=== PATIENT | male | born 1935 | race Caucasian/White ===

== ENCOUNTER 2019-05-04 03:50 | Emergency (ER) | payer MEDICARE ==
[2019-05-04 04:31] LABS: Glucose,Whole Blood 110 mg/dL (75-99)
[2019-05-04 04:37] LABS: Basophils # (A) 0.1 k/uL (0-0.2); Basophils % (A) 2 %; Eosinophils # (A) 0.1 k/uL (0-0.7); Eosinophils % (A) 2 %; HCT 39.7 % (39.0-53.0); HGB 13.3 gm/dL (13.0-17.5); Lymphocytes # (A) 0.4 k/uL (1.0-4.8); Lymphocytes % (A) 6 %; MCHC 33.4 g/dL (31.0-37.0); MCV 86.9 fL (80.0-100.0); Monocytes # (A) 0.8 k/uL (0-1.0); Monocytes % (A) 11 %; Neutrophils # (A) 5.6 k/uL (1.3-7.7); Neutrophils % (A) 78 %; Platelet Count 181 k/uL (150-450); RBC 4.57 m/uL (4.30-5.90); WBC 7.1 k/uL (3.8-10.6)
--- NOTE | 2019-05-04 04:41 | XR ---
EXAMINATION TYPE: XR chest 2V DATE OF EXAM: 05/04/2019 COMPARISON: NONE HISTORY: Altered mental status. Weakness. TECHNIQUE: FINDINGS: There is no heart failure nor confluent pneumonic infiltrate. Costophrenic angles are clear . There is small linear density in the left lung. There are no hilar masses. There are chest leads. T here is no sign of pleural effusion. Bony thorax is intact. IMPRESSION: Mild left side scarring or subsegmental atelectasis. Normal heart.
[2019-05-04 04:43] LABS: ALT 15 U/L (4-49); AST 35 U/L (17-59); African American GFR (CKD) >90 (>60 ml/min/1.73 sqM); Albumin 3.6 g/dL (3.5-5.0); Alkaline Phosphatase 51 U/L (38-126); Anion Gap 7 mmol/L; Blood Urea Nitrogen 22 mg/dL (9-20); Calcium 8.5 mg/dL (8.4-10.2); Carbon Dioxide 24 mmol/L (22-30); Chloride 102 mmol/L (98-107); Glucose 100 mg/dL (74-99); Non-African American GFR(CKD) 83 (>60 ml/min/1.73 sqM); Potassium 4.5 mmol/L (3.5-5.1); Sodium 133 mmol/L (137-145); Total Protein 6.5 g/dL (6.3-8.2)
[2019-05-04 04:50] LABS: Prothrombin Time 10.1 sec (9.0-12.0)
--- NOTE | 2019-05-04 04:50 | CT ---
EXAMINATION TYPE: CT brain wo con DATE OF EXAM: 05/04/2019 COMPARISON: None HISTORY: weakness, ams CT DLP: 1087.4 mGycm Automated exposure control for dose reduction was used. Multiple axial sections were obtained of the brain without contrast. There is diffuse cerebral cortical atrophy. There is no mass effect nor midline shift. There is no si gn of intracranial hemorrhage. The calvarium is intact. There is no evidence of cerebral edema. There is mild mucosal thickening in the ethmoid air cells. IMPRESSION: Cerebral atrophy. No acute intracranial abnormality. Mild ethmoid sinusitis.
[2019-05-04 05:31] VITALS: TEMP 98.4
--- NOTE | 2019-05-04 05:45 | ED ---
General Adult HPI - General Chief complaint: Fall Stated complaint: Weakness Time Seen by Provider: 05/04/19 04:09 Source: patient, family Mode of arrival: EMS - History of Present Illness Initial comments: Mr Fernandez is a pleasantly confused 83-year-old gentleman presents the ER today for evaluation of generalized weakness and a fall. Patient has been undergoing a very thorough evaluation with neurology due to multiple complaints which are likely due to normal pressure hydrocephalus. Patient underwent a lumbar puncture earlier in the week and had improvement in his gait instability and confusion. reports that this evening patient just seemed to be worse, he seemed to have some weakness and trouble walking and attempted to get out of bed and fell. He did not strike his head he did not lose consciousness. reports this is been ongoing problem for a number of months and his neurologist had advised that he needs C neurosurgery to discuss having a shunt placed. Patient reports he is just feeling tired this morning was weak and couldn't get out of bed. He denies any pain or injury. - Related Data Allergies Allergy/AdvReac Type Severity Reaction Status Date / Time No Known Allergies Allergy Verified 05/04/19 03:59 Review of Systems ROS Statement: Those systems with pertinent positive or pertinent negative responses have been documented in the HPI. ROS Other: All systems not noted in ROS Statement are negative. Past Medical History Past Medical History: Memory Impairment, Osteoarthritis (OA) Additional Past Medical History / Comment(s): Dementia, difficulty walking, incontinent, History of Any Multi-Drug Resistant Organisms: None Reported Past Surgical History: Orthopedic Surgery Past Psychological History: Depression Smoking Status: Former smoker Past Alcohol Use History: None Reported Past Drug Use History: None Reported General Exam - General Exam Comments Initial Comments: Physical Exam GENERAL: Patient is well-developed and well-nourished. Patient is nontoxic and well- hydrated and is in no distress. HENT: Normocephalic, Atraumatic. EYES: PERRL, EOMI PULMONARY: Unlabored respirations. No audible rales rhonchi or wheezing was noted. CARDIOVASCULAR: There is a regular rate and rhythm without any murmurs gallops or rubs. ABDOMEN: Soft and nontender with normal bowel sounds. SKIN: Skin is clear with no lesions or rashes and otherwise unremarkable. : Deferred NEUROLOGIC: Patient is alert and oriented x3. Moving all extremities spontaneously MUSCULOSKELETAL: Normal extremities with adequate strength and full range of motion. No lower extremity swelling or edema. No calf tenderness. PSYCHIATRIC: Normal psychiatric evaluation. Course Vital Signs 05/04/19 05/04/19 05/04/19 03:52 04:04 04:08 Temperature 99.2 F 98.8 F Pulse Rate 82 85 Pulse Rate [ General Counsel ] Respiratory 17 19 20 Rate Blood Pressure 164/107 133/88 O2 Sat by Pulse 94 L 97 Oximetry 05/04/19 05/04/19 05/04/19 04:09 05:30 06:00 Temperature 98.4 F Pulse Rate 73 70 Pulse Rate [ 91 General Counsel ] Respiratory 15 18 Rate Blood Pressure 135/85 132/79 O2 Sat by Pulse 94 L 93 L Oximetry 05/04/19 05/04/19 07:00 07:22 Temperature 98.4 F Pulse Rate 66 66 Pulse Rate [ General Counsel ] Respiratory 19 17 Rate Blood Pressure 132/79 132/79 O2 Sat by Pulse 97 97 Oximetry EKG Findings - EKG Comments: EKG Findings:: She was obtained due to complaint of generalized weakness, he was obtained at 354, rate is 81 and rhythm is sinus with bifascicular block, no acute ST elevations or depressions no evidence of acute ischemia or infarction Medical Decision Making - Medical Decision Making The patient was seen and evaluated history was obtained from patient and This is an 83-year-old gentleman with recently diagnosed normal pressure hydrocephalus who is been referred to neurosurgery for shunt placement, patient had a good week after a lumbar puncture earlier in the week but today became weak again with trouble walking and had a fall. He had no injuries. Denied any complaints. Labs and imaging obtained in the ER were unremarkable head CT showed no signs of hydrocephalus. Patient was able to ambulate with assistance was feeling much stronger was comfortable with the plan for discharge home with continued outpatient follow-up. was agreeable with this plan. I did offer them transfer to a facility for evaluation by neurosurgery however they declined at this time. All questions pertaining care answered return parameters were discussed patient was discharged home in stable condition. - Lab Data Result diagrams: 05/04/19 03:58 05/04/19 03:58 Lab Results 05/04/19 05/04/19 05/04/19 Range/Units 03:58 03:58 03:58 WBC 7.1 (3.8-10.6) k/uL RBC 4.57 (4.30-5.90) m/uL Hgb 13.3 (13.0-17.5) gm/dL Hct 39.7 (39.0-53.0) % MCV 86.9 (80.0-100.0) fL MCH 29.0 (25.0-35.0) pg MCHC 33.4 (31.0-37.0) g/dL RDW 13.0 (11.5-15.5) % Plt Count 181 (150-450) k/uL Neutrophils % 78 % Lymphocytes % 6 % Monocytes % 11 % Eosinophils % 2 % Basophils % 2 % Neutrophils # 5.6 (1.3-7.7) k/uL Lymphocytes # 0.4 L (1.0-4.8) k/uL Monocytes # 0.8 (0-1.0) k/uL Eosinophils # 0.1 (0-0.7) k/uL Basophils # 0.1 (0-0.2) k/uL PT 10.1 (9.0-12.0) sec INR 1.0 (<1.2) APTT 21.0 L (22.0-30.0) sec Sodium 133 L (137-145) mmol/L Potassium 4.5 (3.5-5.1) mmol/L Chloride 102 (98-107) mmol/L Carbon Dioxide 24 (22-30) mmol/L Anion Gap 7 mmol/L BUN 22 H (9-20) mg/dL Creatinine 0.83 (0.66-1.25) mg/dL Est GFR (CKD-EPI)AfAm >90 (>60 ml/min/1.73 sqM) Est GFR (CKD-EPI)NonAf 83 (>60 ml/min/1.73 sqM) Glucose 100 H (74-99) mg/dL POC Glucose (mg/dL) (75-99) mg/dL POC Glu Director Of Logistics ID Calcium 8.5 (8.4-10.2) mg/dL Total Bilirubin 1.0 (0.2-1.3) mg/dL AST 35 (17-59) U/L ALT 15 (4-49) U/L Alkaline Phosphatase 51 (38-126) U/L Troponin I (0.000-0.034) ng/mL Total Protein 6.5 (6.3-8.2) g/dL Albumin 3.6 (3.5-5.0) g/dL Urine Color Urine Appearance (Clear) Urine pH (5.0-8.0) Ur Specific Allen (1.001-1.035) Urine Protein (Negative) Urine Glucose (UA) (Negative) Urine Ketones (Negative) Urine Blood (Negative) Urine Nitrite (Negative) Urine Bilirubin (Negative) Urine Urobilinogen (<2.0) mg/dL Ur Leukocyte Esterase (Negative) 05/04/19 05/04/19 05/04/19 Range/Units 03:58 04:29 06:30 WBC (3.8-10.6) k/uL RBC (4.30-5.90) m/uL Hgb (13.0-17.5) gm/dL Hct (39.0-53.0) % MCV (80.0-100.0) fL MCH (25.0-35.0) pg MCHC (31.0-37.0) g/dL RDW (11.5-15.5) % Plt Count (150-450) k/uL Neutrophils % % Lymphocytes % % Monocytes % % Eosinophils % % Basophils % % Neutrophils # (1.3-7.7) k/uL Lymphocytes # (1.0-4.8) k/uL Monocytes # (0-1.0) k/uL Eosinophils # (0-0.7) k/uL Basophils # (0-0.2) k/uL PT (9.0-12.0) sec INR (<1.2) APTT (22.0-30.0) sec Sodium (137-145) mmol/L Potassium (3.5-5.1) mmol/L Chloride (98-107) mmol/L Carbon Dioxide (22-30) mmol/L Anion Gap mmol/L BUN (9-20) mg/dL Creatinine (0.66-1.25) mg/dL Est GFR (CKD-EPI)AfAm (>60 ml/min/1.73 sqM) Est GFR (CKD-EPI)NonAf (>60 ml/min/1.73 sqM) Glucose (74-99) mg/dL POC Glucose (mg/dL) 110 H (75-99) mg/dL POC Glu Director Of Logistics ID Genevieve, Ricki Calcium (8.4-10.2) mg/dL Total Bilirubin (0.2-1.3) mg/dL AST (17-59) U/L ALT (4-49) U/L Alkaline Phosphatase (38-126) U/L Troponin I <0.012 (0.000-0.034) ng/mL Total Protein (6.3-8.2) g/dL Albumin (3.5-5.0) g/dL Urine Color Yellow Urine Appearance Clear (Clear) Urine pH 6.5 (5.0-8.0) Ur Specific Allen 1.020 (1.001-1.035) Urine Protein Trace H (Negative) Urine Glucose (UA) Negative (Negative) Urine Ketones Negative (Negative) Urine Blood Negative (Negative) Urine Nitrite Negative (Negative) Urine Bilirubin Negative (Negative) Urine Urobilinogen <2.0 (<2.0) mg/dL Ur Leukocyte Esterase Negative (Negative) Disposition Clinical Impression: Fall Disposition: HOME SELF-CARE Condition: Stable Instructions (If sedation given, give patient instructions): Fall Prevention (ED) Additional Instructions: Follow-up with your neurologist for further discussion of shunt placement, retu rn to the ER for any worsening confusion, weakness or any new or concerning symptoms Is patient prescribed a controlled substance at d/c from ED?: No Referrals: Sebastián Mccarthy MD [Primary Care Provider] - 1-2 days
[2019-05-04 06:06] VITALS: BP 132/79
[2019-05-04 06:35] LABS: Appearance,Urine Clear (Clear); Bilirubin,Urine Negative (Negative); Blood,Urine Negative (Negative); Color,Urine Yellow; Glucose,Urine (UA) Negative (Negative); Ketones,Urine Negative (Negative); Leukocyte Esterase,Urine Negative (Negative); Nitrite,Urine Negative (Negative); PH, Urine 6.5 (5.0-8.0); Protein,Urine Trace (Negative); Urobilinogen,Urine <2.0 mg/dL (<2.0)
[2019-05-04 07:22] VITALS: PULSE 66
[2019-05-04 07:24] VITALS: RESP 17
== END 2019-05-04 07:24 | disposition home or self-care (01) ==
LOC: EC 03:50
DX: R53.1 Weakness (principal); R25.2 Cramp and spasm; R53.83 Other fatigue; F03.90 Unspecified dementia, unspecified severity, without behavioral disturbance, psychotic disturbance, mood disturbance, and anxiety; Z87.891 Personal history of nicotine dependence; Z86.69 Personal history of other diseases of the nervous system and sense organs; Z98.890 Other specified postprocedural states; W06.XXXA Fall from bed, initial encounter; Y93.89 Activity, other specified; Y92.009 Unspecified place in unspecified non-institutional (private) residence as the place of occurrence of the external cause
CPT/HCPCS: 36415; 51701; 70450; 71046; 80053; 81003; 84484; 85025; 85610; 85730; 93005; 99284

== ENCOUNTER → 2019-06-06 | Outpatient (CLI) | payer BC, MEDICARE ==
--- NOTE | 2019-06-06 10:55 | CT ---
EXAMINATION TYPE: CT lumbar spine wo con DATE OF EXAM: 06/06/2019 10:35 AM COMPARISON: None HISTORY: Low back and hip pain for years getting worse. CT DLP: 882.7 mGycm Automated exposure control for dose reduction was used. TECHNIQUE: Unenhanced CT of the lumbar spine was performed. Bone and soft tissue window settings are submitted as well as coronal and sagittal reconstructions. FINDINGS: There is grade 1 anterolisthesis of L4 on L5 measuring 3.4 mm without pars interarticularis defects. Findings likely due to facet hypertrophy. Opposing surface endplate sclerosis is seen of L2 -L3. Multilevel vacuum disc phenomenon, intervertebral disc space narrowing, anterior osteophytes, sm all posterior projecting osteophytes, and facet arthropathy are seen. There is bridging of the L5-S1 vertebral levels due to an anterior osteophyte. Old healed fracture deformity of the posterior margin of rib 11 on the right. Very minimal levoscolio sis of the lumbar spine. Old healed fracture deformities of L1-L3 right transverse processes. Few sca ttered sigmoid diverticula are partially visualized without pericolonic fat stranding. Moderate ather osclerosis of the abdominal aorta. Approximately 1.3 cm left renal cyst. 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 Up per limits of normal size of the descending thoracic aorta. Nonobstructing left lower pole renal calc ulus measures 1.2 cm. L1-L2: There is a broad-based disc bulge with facet arthropathy without spinal canal stenosis or neur al foraminal narrowing. L2-L3: There is a broad-based disc bulge and facet arthropathy resulting in mild left and moderate ri ght neural foraminal narrowing as well as mild spinal canal stenosis. L3-L4: There is a broad-based disc bulge and facet arthropathy resulting in moderate bilateral neural foraminal narrowing and mild spinal canal stenosis. L4-L5: There is disc uncovering from the anterolisthesis, broad-based disc bulge, and facet arthropat hy resulting in moderate right and mild left neural foraminal narrowing without spinal canal stenosis . L5-S1: Intervertebral disc space narrowing is seen with disc desiccation. Posterior projecting osteop hytes contribute to very mild bilateral neural foraminal narrowing without spinal canal stenosis. There is limitation in evaluation for disc herniation on CT and limitation in evaluation of the spina l canal. IMPRESSION: 1. Mild spinal canal stenosis at L2-L4 secondary to degenerative change as detailed above. Multilevel neural foraminal narrowing is seen that is variable degree at each level. 2. Grade 1 anterolisthesis of L4 on L5 secondary to hypertrophic facet change. 3. Very mild levoscoliosis of the lumbar spine. 4. Numerous incidental findings detailed above.
== END | disposition home or self-care (01) ==
LOC: RADCTMAIN 10:12
PROVIDERS: ATTEND Family Medicine
DX: M48.061 Spinal stenosis, lumbar region without neurogenic claudication (principal); M43.16 Spondylolisthesis, lumbar region; M47.816 Spondylosis without myelopathy or radiculopathy, lumbar region; M41.86 Other forms of scoliosis, lumbar region; Z91.048 Other nonmedicinal substance allergy status
CPT/HCPCS: 72131

== ENCOUNTER → 2019-10-04 | Outpatient (CLI) | payer BC, MEDICARE ==
--- NOTE | 2019-10-06 13:10 | US ---
EXAMINATION TYPE: US venous doppler duplex LE BI DATE OF EXAM: 10/04/2019 4:12 PM COMPARISON: NONE CLINICAL HISTORY: 83-year-old male Lower extremity; Swelling. Bilateral leg swelling SIDE PERFORMED: Bilateral TECHNIQUE: The lower extremity deep venous system is examined utilizing real time linear array sonog chi with graded compression, doppler sonography and color-flow sonography. FINDINGS: VESSELS IMAGED: External Iliac Vein (EIV) Common Femoral Vein Deep Femoral Vein Greater Saphenous Vein * Femoral Vein Popliteal Vein Small Saphenous Vein * Proximal Calf Veins (* superficial vessels) Right Leg: Negative for DVT Left Leg: Negative for DVT Attempted to call Dr's office at time of exam, no answer IMPRESSION: No evidence for DVT within the bilateral lower extremities imaged from the groin to the upper calves.
== END | disposition home or self-care (01) ==
LOC: RADUSWWP 15:48
PROVIDERS: ATTEND Neurological Surgery
DX: M79.89 Other specified soft tissue disorders (principal)
CPT/HCPCS: 93970

== ENCOUNTER → 2019-11-07 | Outpatient (CLI) | payer MEDICARE ==
--- NOTE | 2019-11-09 11:24 | CT ---
EXAMINATION TYPE: CT brain wo con DATE OF EXAM: 11/07/2019 COMPARISON: 05/04/2019 HISTORY: 83-year-old male G91.2, idiopathic normal pressure hydrocephalus. Follow up for shunt placem ent. Patient also complaining of headaches TECHNIQUE: Examination was done in axial plane without intravenous contrast. Coronal and sagittal r econstructions performed. CT DLP: 1102.2 mGycm Automated exposure control for dose reduction was used. FINDINGS: Right parietal approach GUN PERFORATOR shunt catheter redemonstrated. The catheter tip is just to the left of mid line in the anterior aspect of the left lateral ventricle. Boateng ratio is calculated at 0.36, not significantly changed. Moderate patchy white matter hypodensities in both cerebral hemispheres. [id number] generalized supratentorial volume loss. There is no evidence of acute intracranial hemorrhage, acute ischemic changes, mass, mass-effect, or extra-axial fluid collection. There is no effacement of cerebral sulci or basal subarachnoid cister ns. No midline shift. Smith-white matter distinction is preserved. Scattered mild mucosal thickening ethmoid air cells. Leftward nasal septal deviation. Cerumen within the bilateral external auditory canals. Orbits and globes appear intact. IMPRESSION: 1. Interval placement of right parietal approach GUN PERFORATOR shunt catheter. The tip is just to the left of mi dline within the anterior aspect of the left lateral ventricle. Overall stable [id number] ventr iculomegaly with Jaspreet's ratio calculated at 0.36. 2. Moderate generalized atrophy and patchy parenchymal chronic small vessel ischemic disease. No acut e intracranial abnormality seen. 3. Mild chronic ethmoid sinus disease.
== END | disposition home or self-care (01) ==
LOC: RADCTMAIN 15:17
PROVIDERS: ATTEND Neurological Surgery
DX: G93.89 Other specified disorders of brain (principal); I67.82 Cerebral ischemia; G31.9 Degenerative disease of nervous system, unspecified; Z98.2 Presence of cerebrospinal fluid drainage device
CPT/HCPCS: 70450

== ENCOUNTER → 2020-08-26 | Outpatient (CLI) | payer MEDICARE ==
--- NOTE | 2020-08-26 08:31 | US ---
EXAMINATION TYPE: US abdomen complete DATE OF EXAM: 08/26/2020 COMPARISON: NONE CLINICAL HISTORY: R10.11 right upper quandrant pain. Generalized pain EXAM MEASUREMENTS: Liver Length: 14.8 cm Gallbladder Wall: 0.1 cm Spleen: 10.9 cm Right Kidney: 9.6 x 5.6 x 5.6 cm Left Kidney: 10.4 x 4.0 x 4.9 cm Extremely limited due to overlying bowel gas Pancreas: Obscured by bowel gas Liver: Right lobe limited visualization. Left lobe cystic lesion = 1.4 x 1.3 x 1.1 cm Gallbladder: wnl Evidence for sonographic Sepulveda's sign: neg CBD: Obscured by overlying bowel gas Spleen: wnl Right Kidney: No hydronephrosis or masses seen Left Kidney: lateral cystic appearing lesion = 1.3 x 1.1 x 1.1 cm Upper IVC: Obscured by overlying bowel gas Abd Aorta: proximal and mid obscured by overlying bowel gas Visualized distal abdominal aorta shows no aneurysm. Pancreas suboptimally seen on images saved. Visu alized liver heterogeneously hyperechoic making evaluation for focal masses suboptimal. Technologist smith nonspecific 1.3 cm oval hypoechoic to anechoic lesion with increased through transmission favor ing benign thin-walled cyst. No intrahepatic ductal dilatation. No shadowing mobile gallstones. Towar ds end of study technologist marked a 1.2 cm hypoechoic anechoic round lesion with increased through transmission favoring simple thin-walled cyst laterally mid to lower pole of the left kidney. Common bile duct not visualized with certainty. IMPRESSION: Suboptimal study without acute findings clearly seen. Consider CT evaluation if symptoms of pain persist
== END | disposition home or self-care (01) ==
LOC: RADUSWWP 07:46
PROVIDERS: ATTEND Family Medicine
DX: R10.11 Right upper quadrant pain (principal)
CPT/HCPCS: 76700

== ENCOUNTER → 2021-06-16 | Outpatient (CLI) | payer MEDICARE ==
--- NOTE | 2021-06-16 10:26 | CT ---
EXAMINATION TYPE: CT brain wo con DATE OF EXAM: 06/16/2021 COMPARISON: CT dated 11/07/2019 HISTORY: Normal pressure hydrocephalus CT DLP: 1123.9 mGycm Automated exposure control for dose reduction was used. TECHNIQUE: CT scan of the brain is performed without IV contrast administration. FINDINGS: Unchanged position of the right transparietal PRINT TRAFFIC MANAGER shunt. No progressive dilatation of ventricular syst em or signs suggestive of shunt malfunction. Stable brain volume loss changes and suspected mild director of market research justin macrovascular ischemic changes. No acute intracranial hemorrhage. No gross acute cortical infarct. No midline shift or herniation. Un remarkable basal cisterns, sella and CP angles. No gross space-occupying lesion, vasogenic edema or m ass effect. Unremarkable orbits. Clear visualized paranasal sinuses and mastoid air cells. Unremarkable calvarial bones. IMPRESSION: Stable condition as described above.
== END | disposition home or self-care (01) ==
LOC: RADCTMAIN 08:59
PROVIDERS: ATTEND Internal Medicine
DX: G91.2 (Idiopathic) normal pressure hydrocephalus (principal)
CPT/HCPCS: 70450

== ENCOUNTER 2021-06-22 17:05 | Emergency (ER) | payer MEDICARE ==
[2021-06-22 17:18] VITALS: BP 142/75; PULSE 67; RESP 12; TEMP 97.8
[2021-06-22] MEDS ORDERED: SODIUM CHLORIDE 0.9% 1,000 ML IV STA (17:36)
[2021-06-22 18:08] LABS: Albumin 3.9 g/dL (3.5-5.0); Calcium 9.3 mg/dL (8.4-10.2); Magnesium 2.2 mg/dL (1.6-2.3); Potassium 4.4 mmol/L (3.5-5.1); Total Bilirubin 0.7 mg/dL (0.2-1.3); Total Protein 7.1 g/dL (6.3-8.2)
[2021-06-22 18:17] LABS: Prothrombin Time 10.6 sec (9.0-12.0)
[2021-06-22 18:20] LABS: Basophils % (A) 0 %; Eosinophils # (A) 0.2 k/uL (0-0.7); Eosinophils % (A) 3 %; HCT 41.6 % (39.0-53.0); HGB 13.9 gm/dL (13.0-17.5); Lymphocytes # (A) 1.1 k/uL (1.0-4.8); Lymphocytes % (A) 15 %; MCH 29.5 pg (25.0-35.0); MCHC 33.4 g/dL (31.0-37.0); MCV 88.4 fL (80.0-100.0); Mean Platelet Volume 7.4; Monocytes # (A) 0.4 k/uL (0-1.0); Monocytes % (A) 6 %; Neutrophils # (A) 5.2 k/uL (1.3-7.7); Neutrophils % (A) 73 %; Platelet Count 294 k/uL (150-450); RDW 12.8 % (11.5-15.5); WBC 7.2 k/uL (3.8-10.6)
--- NOTE | 2021-06-22 18:23 | ED ---
Weakness HPI - General Chief complaint: Weakness Stated complaint: generalized weakness Time Seen by Provider: 06/22/21 17:26 Source: EMS Mode of arrival: EMS Limitations: altered mental status, physical limitation - History of Present Illness Initial comments: Patient is an 85-year-old male who presents to the emergency department with chief complaint of generalized weakness. Patient's is at bedside and helps provide history. She states that patient has dementia and is alert and oriented 1 at baseline however for the past 2 days patient has been more inattentive and confused. Patient normally uses a walker to move around at home but has not had the strength to stand to perform activities of daily living. Patient's states the patient has been sleeping more than normal, has been drinking less fluid, and has increased urinary frequency. No foul odor noticed. Patient reports intermittent burning with urination. Patient has no other concerns at this time including fever, chills, headache, shortness of breath, cough, chest pain, abdominal pain, nausea, vomiting, and diarrhea. Patient and patient's deny history of heart attack and stroke although patient's does report that previous MRI may have shown missed mini strokes. Patient denies limb weakness or numbness. - Related Data Home Medications Medication Instructions Recorded Confirmed Donepezil [Aricept] 5 mg PO W/BRKFST 06/22/21 06/22/21 Finasteride [Proscar] 5 mg PO DAILY@209906/22/21 06/22/21 Fluticasone Nasal [place] [Flonase 1 spray EA NOSTRIL BID 06/22/21 06/22/21 Nasal [place]] Galantamine HBr [Galantamine ER] 24 mg PO W/BRKFST 06/22/21 06/22/21 Meclizine [Antivert] 12.5 mg PO TID PRN 06/22/21 06/22/21 Melatonin 10 mg PO HS 06/22/21 06/22/21 Mirabegron [Myrbetriq] 50 mg PO DAILY@209906/22/21 06/22/21 Omeprazole 20 mg PO W/BRKFST PRN 06/22/21 06/22/21 Sertraline [Zoloft] 100 mg PO W/BRKFST 06/22/21 06/22/21 Tamsulosin HCl [Flomax] 0.4 mg PO DAILY@2100 06/22/21 06/22/21 traZODone HCL [Desyrel] 100 mg PO HS 06/22/21 06/22/21 Allergies Allergy/AdvReac Type Severity Reaction Status Date / Time No Known Allergies Allergy Verified 06/22/21 18:49 Review of Systems ROS Statement: Those systems with pertinent positive or pertinent negative responses have been documented in the HPI. ROS Other: All systems not noted in ROS Statement are negative. Past Medical History Past Medical History: Memory Impairment, Osteoarthritis (OA) Additional Past Medical History / Comment(s): Dementia, difficulty walking, incontinent, History of Any Multi-Drug Resistant Organisms: None Reported Past Surgical History: Orthopedic Surgery Past Psychological History: Depression Past Alcohol Use History: None Reported Past Drug Use History: None Reported General Exam Limitations: altered mental status, physical limitation General appearance: alert, in no apparent distress Head exam: Present: atraumatic, normocephalic, normal inspection Eye exam: Present: normal appearance, PERRL, EOMI. Absent: scleral icterus, conjunctival injection, periorbital swelling Respiratory exam: Present: normal lung sounds bilaterally. Absent: respiratory distress, wheezes, rales, rhonchi, stridor Cardiovascular Exam: Present: regular rate, normal rhythm, normal heart sounds. Absent: systolic murmur, diastolic murmur, rubs, gallop, clicks GI/Abdominal exam: Present: soft, normal bowel sounds. Absent: distended, tenderness, guarding, rebound, rigid Extremities exam: Present: normal inspection. Absent: pedal edema, calf tenderness Back exam: Absent: CVA tenderness (R), CVA tenderness (L) Neurological exam: Present: alert. Absent: oriented X3 Psychiatric exam: Present: normal affect, normal mood Skin exam: Present: warm, dry, intact, normal color. Absent: rash Course Vital Signs 06/22/21 17:08 Temperature 97.8 F Pulse Rate 67 Respiratory 12 Rate Blood Pressure 142/75 O2 Sat by Pulse 93 L Oximetry EKG Findings - EKG Comments: EKG Findings:: EKG taken at 17:27 sinus rhythm with sinus arrhythmia, right bundle branch block, left anterior fascicular block. Ventricular rate 69. MD interval 189. QRS duration 148. QTC 453 Medical Decision Making - Medical Decision Making This is an 85-year-old male who presents with generalized weakness. Thorough history and examination were performed. Patient is afebrile. He is well appearing and in no apparent distress. He does not have chest pain or shortness of breath. The neurological exam is unremarkable with no focal weakness or deficits. EKG shows no acute changes. Troponin is negative. Other laboratory studies are unremarkable. Chest x-ray was obtained which shows no acute process with no change from prior. Urinalysis is not indicative of infection. COVID- 19 and influenza A/B are not detected. Patient given large fluid bolus. On reevaluation patient's reports that patient seems much better. At this time there are no diagnostic studies that explain patient's weakness. Patient may be experiencing worsening dementia. Patient's states that patient has home health care and physical therapy biweekly. Patient will be discharged with instruction to follow up with his primary care provider. I did explain to patient and patient's that patient is a fall risk and he should not be staying up by himself while he is feeling weak. Return parameters were discussed. Patient patient's verbalized understanding and are agreeable to plan. Dr. Mccartney is my attending. - Lab Data Result diagrams: 06/22/21 17:53 06/22/21 17:53 Lab Results 06/22/21 06/22/21 06/22/21 Range/Units 17:53 17:53 17:53 WBC 7.2 (3.8-10.6) k/uL RBC 4.70 (4.30-5.90) m/uL Hgb 13.9 (13.0-17.5) gm/dL Hct 41.6 (39.0-53.0) % MCV 88.4 (80.0-100.0) fL MCH 29.5 (25.0-35.0) pg MCHC 33.4 (31.0-37.0) g/dL RDW 12.8 (11.5-15.5) % Plt Count 294 (150-450) k/uL MPV 7.4 Neutrophils % 73 % Lymphocytes % 15 % Monocytes % 6 % Eosinophils % 3 % Basophils % 0 % Neutrophils # 5.2 (1.3-7.7) k/uL Lymphocytes # 1.1 (1.0-4.8) k/uL Monocytes # 0.4 (0-1.0) k/uL Eosinophils # 0.2 (0-0.7) k/uL Basophils # 0.0 (0-0.2) k/uL PT 10.6 (9.0-12.0) sec INR 1.0 (<1.2) APTT 29.0 (22.0-30.0) sec D-Dimer 0.55 (<0.60) mg/L FEU Sodium 136 L (137-145) mmol/L Potassium 4.4 (3.5-5.1) mmol/L Chloride 102 (98-107) mmol/L Carbon Dioxide 27 (22-30) mmol/L Anion Gap 7 mmol/L BUN 17 (9-20) mg/dL Creatinine 0.96 (0.66-1.25) mg/dL Est GFR (CKD-EPI)AfAm 85 (>60 ml/min/1.73 sqM) Est GFR (CKD-EPI)NonAf 73 (>60 ml/min/1.73 sqM) Glucose 120 H (74-99) mg/dL Plasma Lactic Acid Tay (0.7-2.0) mmol/L Calcium 9.3 (8.4-10.2) mg/dL Magnesium 2.2 (1.6-2.3) mg/dL Total Bilirubin 0.7 (0.2-1.3) mg/dL AST 28 (17-59) U/L ALT 21 (4-49) U/L Alkaline Phosphatase 46 (38-126) U/L Troponin I (0.000-0.034) ng/mL Total Protein 7.1 (6.3-8.2) g/dL Albumin 3.9 (3.5-5.0) g/dL Urine Color Urine Appearance (Clear) Urine pH (5.0-8.0) Ur Specific [place] (1.001-1.035) Urine Protein (Negative) Urine Glucose (UA) (Negative) Urine Ketones (Negative) Urine Blood (Negative) Urine Nitrite (Negative) Urine Bilirubin (Negative) Urine Urobilinogen (<2.0) mg/dL Ur Leukocyte Esterase (Negative) Influenza Type A (PCR) (Not Detectd) Influenza Type B (PCR) (Not Detectd) RSV (PCR) (Not Detectd) SARS-CoV-2 (PCR) (Not Detectd) 06/22/21 06/22/21 06/22/21 Range/Units 17:53 17:53 18:26 WBC (3.8-10.6) k/uL RBC (4.30-5.90) m/uL Hgb (13.0-17.5) gm/dL Hct (39.0-53.0) % MCV (80.0-100.0) fL MCH (25.0-35.0) pg MCHC (31.0-37.0) g/dL RDW (11.5-15.5) % Plt Count (150-450) k/uL MPV Neutrophils % % Lymphocytes % % Monocytes % % Eosinophils % % Basophils % % Neutrophils # (1.3-7.7) k/uL Lymphocytes # (1.0-4.8) k/uL Monocytes # (0-1.0) k/uL Eosinophils # (0-0.7) k/uL Basophils # (0-0.2) k/uL PT (9.0-12.0) sec INR (<1.2) APTT (22.0-30.0) sec D-Dimer (<0.60) mg/L FEU Sodium (137-145) mmol/L Potassium (3.5-5.1) mmol/L Chloride (98-107) mmol/L Carbon Dioxide (22-30) mmol/L Anion Gap mmol/L BUN (9-20) mg/dL Creatinine (0.66-1.25) mg/dL Est GFR (CKD-EPI)AfAm (>60 ml/min/1.73 sqM) Est GFR (CKD-EPI)NonAf (>60 ml/min/1.73 sqM) Glucose (74-99) mg/dL Plasma Lactic Acid [place] 1.4 (0.7-2.0) mmol/L Calcium (8.4-10.2) mg/dL Magnesium (1.6-2.3) mg/dL Total Bilirubin (0.2-1.3) mg/dL AST (17-59) U/L ALT (4-49) U/L Alkaline Phosphatase (38-126) U/L Troponin I <0.012 (0.000-0.034) ng/mL Total Protein (6.3-8.2) g/dL Albumin (3.5-5.0) g/dL Urine Color Yellow Urine Appearance Clear (Clear) Urine pH 8.0 (5.0-8.0) Ur Specific [place] 1.010 (1.001-1.035) Urine Protein Negative (Negative) Urine Glucose (UA) Negative (Negative) Urine Ketones Negative (Negative) Urine Blood Negative (Negative) Urine Nitrite Negative (Negative) Urine Bilirubin Negative (Negative) Urine Urobilinogen <2.0 (<2.0) mg/dL Ur Leukocyte Esterase Negative (Negative) Influenza Type A (PCR) (Not Detectd) Influenza Type B (PCR) (Not Detectd) RSV (PCR) (Not Detectd) SARS-CoV-2 (PCR) (Not Detectd) 06/22/21 Range/Units 20:19 WBC (3.8-10.6) k/uL RBC (4.30-5.90) m/uL Hgb (13.0-17.5) gm/dL Hct (39.0-53.0) % MCV (80.0-100.0) fL MCH (25.0-35.0) pg MCHC (31.0-37.0) g/dL RDW (11.5-15.5) % Plt Count (150-450) k/uL MPV Neutrophils % % Lymphocytes % % Monocytes % % Eosinophils % % Basophils % % Neutrophils # (1.3-7.7) k/uL Lymphocytes # (1.0-4.8) k/uL Monocytes # (0-1.0) k/uL Eosinophils # (0-0.7) k/uL Basophils # (0-0.2) k/uL PT (9.0-12.0) sec INR (<1.2) APTT (22.0-30.0) sec D-Dimer (<0.60) mg/L FEU Sodium (137-145) mmol/L Potassium (3.5-5.1) mmol/L Chloride (98-107) mmol/L Carbon Dioxide (22-30) mmol/L Anion Gap mmol/L BUN (9-20) mg/dL Creatinine (0.66-1.25) mg/dL Est GFR (CKD-EPI)AfAm (>60 ml/min/1.73 sqM) Est GFR (CKD-EPI)NonAf (>60 ml/min/1.73 sqM) Glucose (74-99) mg/dL Plasma Lactic Acid [place] (0.7-2.0) mmol/L Calcium (8.4-10.2) mg/dL Magnesium (1.6-2.3) mg/dL Total Bilirubin (0.2-1.3) mg/dL AST (17-59) U/L ALT (4-49) U/L Alkaline Phosphatase (38-126) U/L Troponin I (0.000-0.034) ng/mL Total Protein (6.3-8.2) g/dL Albumin (3.5-5.0) g/dL Urine Color Urine Appearance (Clear) Urine pH (5.0-8.0) Ur Specific [place] (1.001-1.035) Urine Protein (Negative) Urine Glucose (UA) (Negative) Urine Ketones (Negative) Urine Blood (Negative) Urine Nitrite (Negative) Urine Bilirubin (Negative) Urine Urobilinogen (<2.0) mg/dL Ur Leukocyte Esterase (Negative) Influenza Type A (PCR) Not Detected (Not Detectd) Influenza Type B (PCR) Not Detected (Not Detectd) RSV (PCR) Not Detected (Not Detectd) SARS-CoV-2 (PCR) Not Detected (Not Detectd) Disposition Clinical Impression: Generalized weakness, Dysuria Disposition: HOME SELF-CARE Condition: Fair Instructions (If sedation given, give patient instructions): Weakness (ED) Additional Instructions: Please follow-up with primary care provider in one to 2 days. You are a fall risk. It is important you ask for help before standing up on your own if your weakness continues. Return to the emergency department if you experience new, concerning, or worsening symptoms. Is patient prescribed a controlled substance at d/c from ED?: No Referrals: Manny Farias MD [Primary Care Provider] - 1-2 days Time of Disposition: 20:51
--- NOTE | 2021-06-22 18:52 | XR ---
EXAMINATION TYPE: XR chest 2V DATE OF EXAM: 06/22/2021 COMPARISON: Chest x-ray May 04, 2019 HISTORY: Weakness. TECHNIQUE: Frontal and lateral views of the chest are obtained. FINDINGS: New right-sided internal jugular central venous catheter terminates near cavoatrial junctio n. There is some chronic parenchymal change bilaterally without suspicious focal air space opacity, p leural effusion, or pneumothorax seen. The cardiac silhouette size remains within normal limits. T he osseous structures are intact. IMPRESSION: No acute process. No significant change from prior.
[2021-06-22 19:09] LABS: Appearance,Urine Clear (Clear); Color,Urine Yellow; Protein,Urine Negative (Negative)
[2021-06-22 19:10] LABS: Bilirubin,Urine Negative (Negative); Blood,Urine Negative (Negative); Glucose,Urine (UA) Negative (Negative); Ketones,Urine Negative (Negative)
[2021-06-22 19:11] LABS: Leukocyte Esterase,Urine Negative (Negative); Nitrite,Urine Negative (Negative); Urobilinogen,Urine <2.0 mg/dL (<2.0)
== END 2021-06-22 21:14 | disposition home or self-care (01) ==
LOC: EC 17:05
DX: R53.1 Weakness (principal); R30.0 Dysuria; Z20.822 Contact with and (suspected) exposure to COVID-19
CPT/HCPCS: 36415; 71046; 80053; 81003; 83605; 83735; 84484; 85025; 85379; 85610; 85730; 87636; 93005; 96360; 99285

== ENCOUNTER 2021-08-16 22:33 | Emergency (ER) | payer MEDICARE ==
[2021-08-16] MEDS ORDERED: AMPICILLIN-SULBACTAM 3 GM in SODIUM CHLORIDE 0.9% 100 ML IVPB STA (23:39)
[2021-08-16] MEDS ORDERED: DIPH,PERTUS(ACELL)TETVAC-LF 0.5 ML VIAL IM ONE (23:39)
--- NOTE | 2021-08-17 00:37 | ED ---
Wound/Laceration HPI - General Chief Complaint: Wound/Laceration Stated Complaint: L Arm Lacertion Time Seen by Provider: 08/16/21 23:33 Source: patient, RN notes reviewed Mode of arrival: ambulatory Limitations: no limitations - History of Present Illness Initial Comments: This is a pleasant 85-year-old male who presents to the back complaining of a wound to his left forearm. Apparently the patient was at a cookout and was playing with his son's dog who ended up scratching his left forearm. The wound was cared for by his [id number]. Apparently she used tissue adhesive to close the wound. However, he now noticed some redness and irritation to the area. Last tetanus is unknown. Patient denies any fever or chills. No lumps in the axilla. Patient's only medical problem is dementia. No headache, no fever or chills, no changes in vision or hearing, no sore throat or difficulty with speech, no neck pain, no chest pain or shortness of breath, no abdominal pain, no nausea or vomiting, no changes in urination or bowel movements, no numbness or tingling, no skin rashes or lesions. - Related Data Home Medications Medication Instructions Recorded Confirmed Donepezil [Aricept] 5 mg PO W/BRKFST 06/22/21 06/22/21 Finasteride [Proscar] 5 mg PO DAILY@209906/22/21 06/22/21 Fluticasone Nasal [place] [Flonase 1 spray EA NOSTRIL BID 06/22/21 06/22/21 Nasal [place]] Galantamine HBr [Galantamine ER] 24 mg PO W/BRKFST 06/22/21 06/22/21 Meclizine [Antivert] 12.5 mg PO TID PRN 06/22/21 06/22/21 Melatonin 10 mg PO HS 06/22/21 06/22/21 Mirabegron [Myrbetriq] 50 mg PO DAILY@209906/22/21 06/22/21 Omeprazole 20 mg PO W/BRKFST PRN 06/22/21 06/22/21 Sertraline [Zoloft] 100 mg PO W/BRKFST 06/22/21 06/22/21 Tamsulosin HCl [Flomax] 0.4 mg PO DAILY@2100 06/22/21 06/22/21 traZODone HCL [Desyrel] 100 mg PO HS 06/22/21 06/22/21 Previous Rx's Medication Instructions Recorded Amoxicillin/Potassium Clav 1 each PO Q12HR #20 tab 08/17/21 [Augmentin 875-125 Tablet] Allergies Allergy/AdvReac Type Severity Reaction Status Date / Time No Known Allergies Allergy Verified 08/16/21 23:00 Review of Systems ROS Statement: Those systems with pertinent positive or pertinent negative responses have been documented in the HPI. ROS Other: All systems not noted in ROS Statement are negative. Past Medical History Past Medical History: Memory Impairment, Osteoarthritis (OA) Additional Past Medical History / Comment(s): Dementia, difficulty walking, incontinent, History of Any Multi-Drug Resistant Organisms: None Reported Past Surgical History: Orthopedic Surgery Past Psychological History: Depression Smoking Status: Former smoker Past Alcohol Use History: None Reported Past Drug Use History: None Reported General Exam - General Exam Comments Initial Comments: Vital signs stable, patient afebrile. Patient does not appear to be syst emically ill. Limitations: no limitations General appearance: alert, in no apparent distress Head exam: Present: atraumatic, normocephalic, normal inspection Eye exam: Present: normal appearance, PERRL, EOMI. Absent: scleral icterus, conjunctival injection, periorbital swelling ENT exam: Present: normal exam, mucous membranes moist Neck exam: Present: normal inspection, full ROM. Absent: tenderness, meningismus, lymphadenopathy Respiratory exam: Present: normal lung sounds bilaterally. Absent: respiratory distress, wheezes, rales, rhonchi, stridor Cardiovascular Exam: Present: regular rate, normal rhythm, normal heart sounds. Absent: systolic murmur, diastolic murmur, rubs, gallop, clicks GI/Abdominal exam: Present: soft, normal bowel sounds. Absent: distended, tenderness, guarding, rebound, rigid Extremities exam: Present: normal inspection, full ROM, normal capillary refill, other (Patient has a superficial skin tear noted to the dorsum of his left forearm. This is covered with tissue adhesive.). Absent: tenderness, pedal william ma, joint swelling, calf tenderness Back exam: Present: normal inspection Neurological exam: Present: alert, oriented X3, CN II-XII intact Psychiatric exam: Present: normal affect, normal mood Skin exam: Present: warm, dry, intact, normal color, erythema (Patient does have mild erythema progressing proximally from the area of skin tear.). Absent: rash, cyanosis, diaphoretic, urticaria, vesicles, petechiae, pallor, mottled, other (Skin tear, 2.5 cm in diameter) Course Vital Signs 08/16/21 22:56 Temperature 98.1 F Pulse Rate 62 Respiratory 22 Rate Blood Pressure 150/98 O2 Sat by Pulse 96 Oximetry Medical Decision Making - Medical Decision Making Patient presents with what is likely a mild cellulitis related to a skin tear to left forearm. Patient does not appear to be systemically ill. Unasyn 3 g IV piggyback ordered. We'll cover with Augmentin and have the patient closely followed up on. Tetanus was updated. Gen. wound care discussed. Patient's white blood cell count was normal. Discussed finishing antibiotics. Discussed conservative measures such as elevation. We'll have the patient recheck with his regular physician within the next 48 hours. Patient understands treatment plan. All questions answered. Erythema demarcated Follow-up with your regular physician as directed. Return to the ER immediately if any symptoms worsen, new symptoms arise, or any other problems develop. - Lab Data Result diagrams: 08/17/21 00:39 08/17/21 00:39 Lab Results 08/17/21 08/17/21 Range/Units 00:39 00:39 WBC 8.5 (3.8-10.6) k/uL RBC 4.87 (4.30-5.90) m/uL Hgb 14.0 (13.0-17.5) gm/dL Hct 43.5 (39.0-53.0) % MCV 89.5 (80.0-100.0) fL MCH 28.9 (25.0-35.0) pg MCHC 32.2 (31.0-37.0) g/dL RDW 12.8 (11.5-15.5) % Plt Count 223 (150-450) k/uL MPV 6.8 Neutrophils % 64 % Lymphocytes % 20 % Monocytes % 7 % Eosinophils % 6 % Basophils % 1 % Neutrophils # 5.4 (1.3-7.7) k/uL Lymphocytes # 1.7 (1.0-4.8) k/uL Monocytes # 0.6 (0-1.0) k/uL Eosinophils # 0.5 (0-0.7) k/uL Basophils # 0.1 (0-0.2) k/uL Sodium 136 L (137-145) mmol/L Potassium 4.4 (3.5-5.1) mmol/L Chloride 102 (98-107) mmol/L Carbon Dioxide 25 (22-30) mmol/L Anion Gap 9 mmol/L BUN 17 (9-20) mg/dL Creatinine 1.10 (0.66-1.25) mg/dL Est GFR (CKD-EPI)AfAm 72 (>60 ml/min/1.73 sqM) Est GFR (CKD-EPI)NonAf 62 (>60 ml/min/1.73 sqM) Glucose 102 H (74-99) mg/dL Calcium 8.9 (8.4-10.2) mg/dL Total Bilirubin 0.5 (0.2-1.3) mg/dL AST 30 (17-59) U/L ALT 21 (4-49) U/L Alkaline Phosphatase 57 (38-126) U/L Total Protein 7.4 (6.3-8.2) g/dL Albumin 4.4 (3.5-5.0) g/dL Disposition Clinical Impression: ISTAP type 2 skin tear of left forearm, Cellulitis of forearm, left Disposition: HOME SELF-CARE Condition: Good Instructions (If sedation given, give patient instructions): Cellulitis (ED) Additional Instructions: Take the antibiotics as instructed. Elevate the arm when possible. Call in the morning to schedule a follow-up appointment with your regular physician for wound check. Follow-up with your regular physician as directed. Return to the ER immediately if any symptoms worsen, new symptoms arise, or any other problems develop. Prescriptions: Amoxicillin/Potassium Clav [Augmentin 875-125 Tablet] 1 each PO Q12HR #20 tab Is patient prescribed a controlled substance at d/c from ED?: No Referrals: Manny Farias MD [Primary Care Provider] - 08/17/21 Time of Disposition: 01:03
[2021-08-17 00:47] LABS: Basophils # (A) 0.1 k/uL (0-0.2); Basophils % (A) 1 %; Eosinophils # (A) 0.5 k/uL (0-0.7); Eosinophils % (A) 6 %; HCT 43.5 % (39.0-53.0); Lymphocytes # (A) 1.7 k/uL (1.0-4.8); Lymphocytes % (A) 20 %; MCH 28.9 pg (25.0-35.0); MCHC 32.2 g/dL (31.0-37.0); MCV 89.5 fL (80.0-100.0); Mean Platelet Volume 6.8; Monocytes # (A) 0.6 k/uL (0-1.0); Monocytes % (A) 7 %; Neutrophils # (A) 5.4 k/uL (1.3-7.7); Neutrophils % (A) 64 %; Platelet Count 223 k/uL (150-450); RBC 4.87 m/uL (4.30-5.90); RDW 12.8 % (11.5-15.5); WBC 8.5 k/uL (3.8-10.6)
[2021-08-17 01:00] LABS: Albumin 4.4 g/dL (3.5-5.0); Calcium 8.9 mg/dL (8.4-10.2); Potassium 4.4 mmol/L (3.5-5.1); Total Bilirubin 0.5 mg/dL (0.2-1.3); Total Protein 7.4 g/dL (6.3-8.2)
[2021-08-17 01:18] VITALS: BP 128/88; PULSE 57; RESP 18; TEMP 98
== END 2021-08-17 02:13 | disposition home or self-care (01) ==
LOC: EC 22:33
DX: S51.812A Laceration without foreign body of left forearm, initial encounter (principal); L03.114 Cellulitis of left upper limb; M19.90 Unspecified osteoarthritis, unspecified site; F32.A Depression, unspecified; F03.90 Unspecified dementia, unspecified severity, without behavioral disturbance, psychotic disturbance, mood disturbance, and anxiety; Z87.891 Personal history of nicotine dependence; Z23 Encounter for immunization; W54.1XXA Struck by dog, initial encounter
CPT/HCPCS: 36415; 80053; 85025; 90471; 90715; 96365; 99283

== ENCOUNTER 2021-09-14 13:42 | Inpatient (IN) | payer BC, MEDICARE ==
--- NOTE | 2021-09-14 14:08 | ED ---
General Adult HPI - General Chief complaint: Altered Mental Status Stated complaint: AMS Time Seen by Provider: 09/14/21 13:44 Source: patient, EMS, RN notes reviewed Mode of arrival: EMS Limitations: no limitations - History of Present Illness Initial comments: Patient is a pleasant 85-year-old male presenting to the emergency department with speech problems. Onset of symptoms was when he woke yesterday morning, greater than 24 hours ago. Patient had worsening symptoms when he woke this morning. Patient has slurred speech and problems finding words. Patient also has some difficulty with walking. Patient does have some baseline dementia and difficulty with confusion however symptoms are worse. - Related Data Home Medications Medication Instructions Recorded Confirmed Donepezil [Aricept] 5 mg PO W/BRKFST 06/22/21 06/22/21 Finasteride [Proscar] 5 mg PO DAILY@209906/22/21 06/22/21 Fluticasone Nasal [place] [Flonase 1 spray EA NOSTRIL BID 06/22/21 06/22/21 Nasal [place]] Galantamine HBr [Galantamine ER] 24 mg PO W/BRKFST 06/22/21 06/22/21 Meclizine [Antivert] 12.5 mg PO TID PRN 06/22/21 06/22/21 Melatonin 10 mg PO HS 06/22/21 06/22/21 Mirabegron [Myrbetriq] 50 mg PO DAILY@209906/22/21 06/22/21 Omeprazole 20 mg PO W/BRKFST PRN 06/22/21 06/22/21 Sertraline [Zoloft] 100 mg PO W/BRKFST 06/22/21 06/22/21 Tamsulosin HCl [Flomax] 0.4 mg PO DAILY@209906/22/21 06/22/21 traZODone HCL [Desyrel] 100 mg PO HS 06/22/21 06/22/21 Previous Rx's Medication Instructions Recorded Amoxicillin/Potassium Clav 1 each PO Q12HR #20 tab 08/17/21 [Augmentin 875-125 Tablet] Allergies Allergy/AdvReac Type Severity Reaction Status Date / Time No Known Allergies Allergy Verified 08/16/21 23:00 Review of Systems ROS Statement: Those systems with pertinent positive or pertinent negative responses have been documented in the HPI. ROS Other: All systems not noted in ROS Statement are negative. Constitutional: Denies: fever Eyes: Denies: eye pain ENT: Denies: ear pain Respiratory: Denies: cough Cardiovascular: Denies: chest pain Endocrine: Denies: fatigue Gastrointestinal: Denies: abdominal pain Genitourinary: Denies: dysuria Musculoskeletal: Denies: back pain Skin: Denies: rash Neurological: Reports: as per HPI, abnormal gait. Denies: headache, weakness Past Medical History Past Medical History: CVA/TIA, Memory Impairment, Osteoarthritis (OA) Additional Past Medical History / Comment(s): Dementia, difficulty walking, incontinent, History of Any Multi-Drug Resistant Organisms: None Reported Past Surgical History: Orthopedic Surgery Past Psychological History: Depression Smoking Status: Former smoker Past Alcohol Use History: None Reported Past Drug Use History: None Reported General Exam Limitations: no limitations General appearance: alert, in no apparent distress Head exam: Present: normocephalic Eye exam: Present: normal appearance, PERRL, EOMI ENT exam: Present: normal oropharynx Neck exam: Present: normal inspection Respiratory exam: Present: normal lung sounds bilaterally Cardiovascular Exam: Present: regular rate, normal rhythm GI/Abdominal exam: Present: soft. Absent: tenderness Extremities exam: Present: normal inspection Neurological exam: Present: alert, CN II-XII intact. Absent: motor sensory deficit Expanded Neurological exam: Present: other (Slurred speech) Patient oriented to: Present: person. Absent: place, time Speech: Present: expressive aphasia Cranial nerves: EOM's Intact: Normal, Facial Sensation: Normal Sensory exam: Upper Extremity Light Touch: Normal, Lower Extremity Light Touch: Normal Motor strength exam: RUE: 5, LUE: 5, RLE: 5, LLE: 5 Eye Response: (4) open spontaneously Motor Response: (6) obeys commands Verbal Response: (4) confused conversation Psychiatric exam: Present: normal affect, normal mood Skin exam: Present: normal color Course Vital Signs 09/14/21 13:51 Temperature 97.9 F Pulse Rate 78 Respiratory 18 Rate Blood Pressure 139/98 O2 Sat by Pulse 94 L Oximetry Medical Decision Making - Medical Decision Making Patient reevaluated. Patient and family updated. [facility] physician group has been paged for admission covering Dr. Llanos - Lab Data Result diagrams: 09/14/21 14:08 09/14/21 14:08 Lab Results 09/14/21 09/14/21 09/14/21 Range/Units 14:08 14:08 14:08 WBC 6.6 (3.8-10.6) k/uL RBC 4.38 (4.30-5.90) m/uL Hgb 13.5 (13.0-17.5) gm/dL Hct 40.0 (39.0-53.0) % MCV 91.4 (80.0-100.0) fL MCH 30.7 (25.0-35.0) pg MCHC 33.6 (31.0-37.0) g/dL RDW 13.0 (11.5-15.5) % Plt Count 163 (150-450) k/uL MPV 6.7 Neutrophils % 77 % Lymphocytes % 7 % Monocytes % 11 % Eosinophils % 1 % Basophils % 2 % Neutrophils # 5.1 (1.3-7.7) k/uL Lymphocytes # 0.4 L (1.0-4.8) k/uL Monocytes # 0.7 (0-1.0) k/uL Eosinophils # 0.1 (0-0.7) k/uL Basophils # 0.2 (0-0.2) k/uL PT 10.1 (9.0-12.0) sec INR 0.9 (<1.2) APTT 27.0 (22.0-30.0) sec Sodium 136 L (137-145) mmol/L Potassium 4.1 (3.5-5.1) mmol/L Chloride 105 (98-107) mmol/L Carbon Dioxide 24 (22-30) mmol/L Anion Gap 7 mmol/L BUN 18 (9-20) mg/dL Creatinine 0.89 (0.66-1.25) mg/dL Est GFR (CKD-EPI)AfAm >90 (>60 ml/min/1.73 sqM) Est GFR (CKD-EPI)NonAf 79 (>60 ml/min/1.73 sqM) Glucose 115 H (74-99) mg/dL Calcium 8.6 (8.4-10.2) mg/dL Total Bilirubin 0.4 (0.2-1.3) mg/dL AST 28 (17-59) U/L ALT 19 (4-49) U/L Alkaline Phosphatase 52 (38-126) U/L Troponin I (0.000-0.034) ng/mL Total Protein 6.6 (6.3-8.2) g/dL Albumin 3.8 (3.5-5.0) g/dL 09/14/21 Range/Units 14:08 WBC (3.8-10.6) k/uL RBC (4.30-5.90) m/uL Hgb (13.0-17.5) gm/dL Hct (39.0-53.0) % MCV (80.0-100.0) fL MCH (25.0-35.0) pg MCHC (31.0-37.0) g/dL RDW (11.5-15.5) % Plt Count (150-450) k/uL MPV Neutrophils % % Lymphocytes % % Monocytes % % Eosinophils % % Basophils % % Neutrophils # (1.3-7.7) k/uL Lymphocytes # (1.0-4.8) k/uL Monocytes # (0-1.0) k/uL Eosinophils # (0-0.7) k/uL Basophils # (0-0.2) k/uL PT (9.0-12.0) sec INR (<1.2) APTT (22.0-30.0) sec Sodium (137-145) mmol/L Potassium (3.5-5.1) mmol/L Chloride (98-107) mmol/L Carbon Dioxide (22-30) mmol/L Anion Gap mmol/L BUN (9-20) mg/dL Creatinine (0.66-1.25) mg/dL Est GFR (CKD-EPI)AfAm (>60 ml/min/1.73 sqM) Est GFR (CKD-EPI)NonAf (>60 ml/min/1.73 sqM) Glucose (74-99) mg/dL Calcium (8.4-10.2) mg/dL Total Bilirubin (0.2-1.3) mg/dL AST (17-59) U/L ALT (4-49) U/L Alkaline Phosphatase (38-126) U/L Troponin I <0.012 (0.000-0.034) ng/mL Total Protein (6.3-8.2) g/dL Albumin (3.5-5.0) g/dL - Radiology Data Radiology results: report reviewed (Computed tomography scan of the brain shows no acute process. Stable BRIAR CUTTER shunt.), image reviewed (Chest x-ray shows no acute process) Disposition Clinical Impression: CVA (cerebral vascular accident) Disposition: ADMITTED IP TO THIS HOSP Is patient prescribed a controlled substance at d/c from ED?: No Referrals: Manny Farias MD [Primary Care Provider] - 1-2 days Time of Disposition: 15:31
[2021-09-14 14:22] LABS: Basophils # (A) 0.2 k/uL (0-0.2); Basophils % (A) 2 %; Eosinophils # (A) 0.1 k/uL (0-0.7); Eosinophils % (A) 1 %; HGB 13.5 gm/dL (13.0-17.5); Lymphocytes # (A) 0.4 k/uL (1.0-4.8); Lymphocytes % (A) 7 %; MCH 30.7 pg (25.0-35.0); MCHC 33.6 g/dL (31.0-37.0); MCV 91.4 fL (80.0-100.0); Mean Platelet Volume 6.7; Monocytes # (A) 0.7 k/uL (0-1.0); Monocytes % (A) 11 %; Neutrophils # (A) 5.1 k/uL (1.3-7.7); Neutrophils % (A) 77 %; Platelet Count 163 k/uL (150-450); RBC 4.38 m/uL (4.30-5.90); WBC 6.6 k/uL (3.8-10.6)
[2021-09-14 14:32] LABS: INR 0.9 (<1.2); Prothrombin Time 10.1 sec (9.0-12.0)
[2021-09-14 14:41] LABS: ALT 19 U/L (4-49); AST 28 U/L (17-59); African American GFR (CKD) >90 (>60 ml/min/1.73 sqM); Albumin 3.8 g/dL (3.5-5.0); Alkaline Phosphatase 52 U/L (38-126); Anion Gap 7 mmol/L; Blood Urea Nitrogen 18 mg/dL (9-20); Calcium 8.6 mg/dL (8.4-10.2); Carbon Dioxide 24 mmol/L (22-30); Chloride 105 mmol/L (98-107); Glucose 115 mg/dL (74-99); Non-African American GFR(CKD) 79 (>60 ml/min/1.73 sqM); Potassium 4.1 mmol/L (3.5-5.1); Sodium 136 mmol/L (137-145); Total Bilirubin 0.4 mg/dL (0.2-1.3); Total Protein 6.6 g/dL (6.3-8.2)
--- NOTE | 2021-09-14 15:02 | CT ---
EXAMINATION TYPE: CT brain wo con DATE OF EXAM: 09/14/2021 COMPARISON: CT dated 06/16/2021 HISTORY: ams CT DLP: 1103..4 mGycm Automated exposure control for dose reduction was used. TECHNIQUE: CT scan of the brain is performed without IV contrast administration. FINDINGS: Unchanged position of the right transparietal SPRAY CEMENTER shunt. Stable size of the supratentorial ventricles. No acute intracranial hemorrhage. No gross acute cortical infarct. No midline shift or herniation. Unremarkable basal cisterns, sella and CP angles. No gross space-occu pying lesion, vasogenic edema or mass effect. Unremarkable orbits. Mucosal thickening of the posterior ethmoid air cells. Clear mastoid air cells. No aggressive bone lesion. IMPRESSION: No acute intracranial hemorrhage or gross acute cortical infarct. Stable supratentorial ventricular s ize as well as the position of the known SPRAY CEMENTER shunt.
--- NOTE | 2021-09-14 15:04 | XR ---
EXAMINATION TYPE: XR chest 2V DATE OF EXAM: 09/14/2021 COMPARISON: 06/22/2021 HISTORY: 85-year-old male confusion, altered mental status TECHNIQUE: AP and lateral views FINDINGS: Right-sided LACER AND TIER shunt catheter. Heart upper limits of normal in size. Mild interstitial prominence as a chronic appearance. Some strandy atelectasis in the lower lungs. No consolidation or pleural effusi on. IMPRESSION: Hypoventilatory changes. Some strandy atelectasis in the lower lungs. No definite acute process.
[2021-09-14] MEDS ORDERED: ASPIRIN 325 MG TAB PO STA (15:32)
[2021-09-14] MEDS ORDERED: MECLIZINE 12.5 MG TAB PO PRN (16:06)
--- NOTE | 2021-09-14 16:48 | P.HPIM ---
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 The patient presented to the emergency room with his . He is awake and alert but only to herself which is his baseline. stated that he was confused more than usual and he had slurred speech this morning she was concerned possible stroke. Patient's denies any changes in his ambulation normally he uses a walker. The patient is not very good historian not able to provide any history for me secondary to his advanced dementia. He denies any chest pain or shortness of breath. Workup in the emergency room including computed tomography scan of the head without contrast showed no acute intracranial hemorrhage or gross acute cortical infarct. Stable supratentorial ventricular size as well as the position of the known CHIL[employer] LUNCHRO[employer] SUPERVISOR shunt. Review of system: All 14 review of systems evaluated and all negative except for above. Physical examination: General: non toxic, no distress, appears at stated age Derm: warm, dry Head: atraumatic, normocephalic, symmetric Eyes: EOMI, no lid lag, anicteric sclera Mouth: no lip lesion, mucus membranes moist Cardiovascular: S1S2 reg, no murmur, positive posterior tibial pulse bilateral, Lungs: CTA bilateral, no rhonchi, no rales , no accessory muscle use Abdominal: soft, nontender to palpation, no guarding, no appreciable organomegaly Ext: no gross muscle atrophy, no edema, no contractures Neuro: CN II-XI grossly intact, no focal neuro deficits Psych: Alert, oriented only to himself, appropriate affect Assessment and plan: #Altered mental status with slurred speech -Admit to hospital to rule out stroke -Stroke protocol -Check 2-D echo -Check LDL and A1c -Neuro consultation -Check B12 -Neuro checks -MRI of the brain without contrast ordered -Resume aspirin and high-dose statins -Carotid Doppler pending result #History history of normal pressure hydrocephalus status post CHILDR[employer]'S LUNCHROOM SUPERVISOR shunt September 2019 #Dementia -Resume Aricept. #BPH -Resume Proscar and Flomax #Anxiety and depression -Resume Zoloft #DVT prophylaxis with Lovenox Past Medical History Past Medical History: CVA/TIA, Memory Impairment, Osteoarthritis (OA) Additional Past Medical History / Comment(s): Dementia, difficulty walking, incontinent, History of Any Multi-Drug Resistant Organisms: None Reported Past Surgical History: Orthopedic Surgery Past Psychological History: Depression Smoking Status: Former smoker Past Alcohol Use History: None Reported Past Drug Use History: None Reported Medications and Allergies Home Medications Medication Instructions Recorded Confirmed Type Donepezil [Aricept] 5 mg PO W/BRKFST 06/22/21 09/14/21 History Finasteride [Proscar] 5 mg PO DAILY@209906/22/21 09/14/21 History Fluticasone Nasal [place] [Flonase 1 spray EA NOSTRIL BID 06/22/21 09/14/21 History Nasal [place]] Galantamine HBr [Galantamine ER] 24 mg PO W/BRKFST 06/22/21 09/14/21 History Meclizine [Antivert] 12.5 mg PO TID PRN 06/22/21 09/14/21 History Melatonin 10 mg PO HS@222906/22/21 09/14/21 History Mirabegron [Myrbetriq] 50 mg PO DAILY@209906/22/21 09/14/21 History Omeprazole 20 mg PO W/BRKFST 06/22/21 09/14/21 History Sertraline [Zoloft] 100 mg PO W/BRKFST 06/22/21 09/14/21 History Tamsulosin HCl [Flomax] 0.4 mg PO DAILY@209906/22/21 09/14/21 History traZODone HCL [Desyrel] 100 mg PO HS@222906/22/21 09/14/21 History Allergies Allergy/AdvReac Type Severity Reaction Status Date / Time No Known Allergies Allergy Verified 09/14/21 15:35 Physical Exam Vitals: Vital Signs Temp Pulse Resp BP Pulse Ox 09/14/21 15:39 63 18 151/82 97 09/14/21 13:51 97.9 F 78 18 139/98 94 L Intake and Output 09/14/21 09/14/21 09/14/21 06:59 14:59 22:59 Other: Weight 83.915 kg Results CBC & Chem 7: 09/14/21 14:08 09/14/21 14:08 Labs: Abnormal Lab Results - Last 24 Hours (Table) 09/14/21 09/14/21 Range/Units 14:08 14:08 Lymphocytes # 0.4 L (1.0-4.8) k/uL Sodium 136 L (137-145) mmol/L Glucose 115 H (74-99) mg/dL
[2021-09-14] MEDS: SODIUM CHLORIDE 0.9% 1,000 ML IV SCH (19:58)
[2021-09-14] MEDS: PATIENT'S OWN (Mirabegron [Myrbetriq] 50 MG Tablet) PO SCH (20:00)
--- NOTE | 2021-09-14 20:03 | US ---
EXAMINATION TYPE: US carotid duplex BILAT DATE OF EXAM: 09/14/2021 COMPARISON: NONE CLINICAL HISTORY: Stenosis. Altered mental status, abnormal speech EXAM MEASUREMENTS: RIGHT: Peak Systolic Velocity (PSV) cm/sec ----- Right CCA: 41.2 ----- Right ICA: 65.3 ----- Right ECA: 55.7 ICA/CCA ratio: 1.6 RIGHT: End Diastole cm/sec ----- Right CCA: 8.5 ----- Right ICA: 16.5 ----- Right ECA: 7.8 LEFT: Peak Systolic Velocity (PSV) cm/sec ----- Left CCA: 57.5 ----- Left ICA: 69.1 ----- Left ECA: 57.0 ICA/CCA ratio: 1.2 LEFT: End Diastole cm/sec ----- Left CCA: 13.9 ----- Left ICA: 17.5 ----- Left ECA: 8.7 VERTEBRALS (direction of flow): Right Vertebral: Antegrade Left Vertebral: Antegrade Rhythm: Normal Heterogeneous plaque bilaterally without evidence of significant stenosis IMPRESSION: There is antegrade flow in the vertebral arteries. The images and measurements suggest 35 % stenosis in both internal carotid arteries. Criteria for Assigning % of Stenosis / Diameter reduction (Estimation based on the indirect measurements of the internal carotid artery velocities (ICA PSV). 1. Normal (no stenosis)=ICA PSV < 125 cm/s: ratio < 2.0: ICA EDV<40 cm/s. 2. Less than 50% stenosis=ICA PSV < 125 cm/s: ratio < 2.0: ICA EDV<40 cm/s. 3. 50 to 69% stenosis=ICA PSV of 125 to 230 cm/s: ration 2.0 ? 4.0: ICA EDV 40-100 cm/s. 4. Greater than 70% stenosis to near occlusion= ICA PSV > 230 cm/s: ratio > 4.0: ICA EDV > 100 cm/s. 5. Near occlusion= ICA PSV velocities may be low or undetectable: variable ratio and ICA EDV. 6. Total occlusion=unable to detect flow.
[2021-09-14] MEDS: ATORVASTATIN 40 MG TAB PO SCH (20:08)
[2021-09-14] MEDS: FINASTERIDE 5 MG TAB PO SCH (20:08)
[2021-09-14] MEDS: FLUTICASONE 50MCG/SPRAY NASAL 16GM EA NOSTRIL SCH (20:08)
[2021-09-14] MEDS: MELATONIN 5 MG TABLET PO SCH (20:08)
[2021-09-14] MEDS: TAMSULOSIN 0.4 MG CAP.ER.24H PO SCH (20:08)
[2021-09-15] MEDS: SODIUM CHLORIDE 0.9% 1,000 ML IV SCH ×3 (02:00→19:31)
[2021-09-15] MEDS: PANTOPRAZOLE 40 MG TABLET PO SCH (06:22)
[2021-09-15] MEDS: SERTRALINE 100 MG TAB PO SCH (06:22)
[2021-09-15] MEDS: DONEPEZIL 10 MG TAB PO SCH (06:22)
[2021-09-15] MEDS ORDERED: DONEPEZIL 5 MG TAB PO SCH (07:30)
[2021-09-15] MEDS: ASPIRIN 325 MG TAB PO SCH (09:05)
[2021-09-15] MEDS: ATORVASTATIN 40 MG TAB PO SCH (09:05)
[2021-09-15] MEDS: ENOXAPARIN 40 MG/0.4 ML SYRINGE SQ SCH (09:05)
[2021-09-15] MEDS: FLUTICASONE 50MCG/SPRAY NASAL 16GM EA NOSTRIL SCH ×2 (09:06→19:40)
[2021-09-15 09:07] LABS: Basophils % (A) 0 %; Eosinophils # (A) 0.1 k/uL (0-0.7); Eosinophils % (A) 2 %; HCT 39.5 % (39.0-53.0); HGB 12.9 gm/dL (13.0-17.5); Lymphocytes # (A) 0.8 k/uL (1.0-4.8); Lymphocytes % (A) 15 %; MCHC 32.7 g/dL (31.0-37.0); MCV 91.8 fL (80.0-100.0); Mean Platelet Volume 7.5; Monocytes # (A) 0.5 k/uL (0-1.0); Monocytes % (A) 10 %; Neutrophils # (A) 3.5 k/uL (1.3-7.7); Neutrophils % (A) 69 %; Platelet Count 149 k/uL (150-450); RBC 4.31 m/uL (4.30-5.90); WBC 5.1 k/uL (3.8-10.6)
[2021-09-15 09:44] LABS: ALT 19 U/L (4-49); AST 29 U/L (17-59); African American GFR (CKD) >90 (>60 ml/min/1.73 sqM); Albumin 3.6 g/dL (3.5-5.0); Alkaline Phosphatase 44 U/L (38-126); Anion Gap 9 mmol/L; Blood Urea Nitrogen 19 mg/dL (9-20); Calcium 8.5 mg/dL (8.4-10.2); Carbon Dioxide 23 mmol/L (22-30); Chloride 103 mmol/L (98-107); Glucose 96 mg/dL (74-99); Non-African American GFR(CKD) 80 (>60 ml/min/1.73 sqM); Potassium 4.3 mmol/L (3.5-5.1); Sodium 135 mmol/L (137-145); Total Bilirubin 0.6 mg/dL (0.2-1.3); Total Protein 6.4 g/dL (6.3-8.2)
--- NOTE | 2021-09-15 12:03 | CA ---
Transthoracic Echo Report Name: Addy Fernandez Age: 85 Gender: M : 1935 Exam Date: 09/15/2021 08:32 Exam Location: [place] [facility] Ht (in): 69 Wt (lb): 185 Ordering Physician: Aurelio Landin DO Attending/Referring Phys: Chefs Ester Navarro RDCS Procedure CPT: Indications: Thrombus Cardiac Hx: Technical Quality: Fair Contrast 1: Total Dose (mL): Contrast 2: Total Dose (mL): MEASUREMENTS (Male / Female) Normal Values 2D ECHO LV Diastolic Diameter PLAX 4.8 cm 4.2 - 5.9 / 3.9 - 5.3 cm LV Systolic Diameter PLAX 3.9 cm IVS Diastolic Thickness 1.4 cm 0.6 - 1.0 / 0.6 - 0.9 cm LVPW Diastolic Thickness 1.3 cm 0.6 - 1.0 / 0.6 - 0.9 cm LV Relative Wall Thickness 0.6 RV Internal Dim ED PLAX 2.7 cm M-MODE Aortic Root Diameter MM 3.6 cm LA Systolic Diameter MM 4.3 cm LA Ao Ratio MM 1.2 MV E Point Septal Separation 0.7 cm AV Cusp Separation MM 1.4 cm DOPPLER Mitral E Point Velocity 57.0 cm/s Mitral A Point Velocity 88.1 cm/s Mitral E to A Ratio 0.6 MV E' Velocity 4.5 cm/s Mitral E to MV E' Ratio 12.6 TR Peak Velocity 221.8 cm/s TR Peak Gradient 19.7 mmHg Right Ventricular Systolic Press 24.1 mmHg FINDINGS Left Ventricle Left ventricular ejection fraction is estimated at 50-55 %. Moderately increased left ventricular wall thickness. Right Ventricle Normal right ventricular size and function. Right Atrium Normal right atrial size. Left Atrium Normal left atrial size. Mitral Valve Structurally normal mitral valve. Mild mitral regurgitation. Aortic Valve Trileaflet aortic valve. Aortic valve sclerosis. Tricuspid Valve Structurally normal tricuspid valve. Mild tricuspid regurgitation. Pulmonic Valve Pulmonic valve not well visualized. Pericardium Normal pericardium. Aorta Normal size aortic root and proximal ascending aorta. CONCLUSIONS Normal LV systolic function mild mitral and tricuspid regurgitation Previewed by: Dr. Tyler Tinoco MD (Electronically Signed) Final Date: 15 September 2021 12:02
--- NOTE | 2021-09-15 15:36 | P.CNNES ---
History of Present Illness Consult date: 09/15/21 Requesting physician: Aurelio Landin Reason for Consult: CVA History of Present Illness: Patient is a 85-year-old right-handed male with history of mild dementia, came to the hospital by ambulance yesterday at 1:42 PM for possible strokelike symptoms. Patient's son was present, who provided with a history. He states that patient lives with his in an apartment. Patient's notices that 2 days ago, on Monday he slept most of the day. Yesterday on Monday, he was very hard to respond, and when he woke up, was having slurred speech, couldn't walk, couldn't move his feet. He couldn't put words together. Therefore they got concerned and called EMS. Normally he has clear speech. No report of any problem with the vision, or any focal weakness of extremities. Patient's son who was present mentions that he did not notice any droopy face, any numbness tingling or weakness or any complain of any visual disturbance. According to EMS flow sheet, when they arrived, patient was seated in the chair, alert and oriented 1-2 and slurring his words. Patient normally is alert and oriented 3-4. 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 Patient was complaining of headache and weakness. has mentioned that symptoms started the night prior but the symptoms have got worse this morning. EKG shows sinus arrhythmia. Vitals at the scene was blood pressure 161/83% 72 respiration 22 situation 90% and blood sugar 168. Temperature 98.0. CT head revealed no acute intracranial hemorrhage or gross acute cortical infarct. Stable supratentorial ventricular size as well as a position of the known CHRISTM[employer] TREE FARMER shunt. I personally reviewed CT head and agree with the findings. No acute process. Chest x-ray revealed hypoventilatory changes. Some strandy atelectasis in the lower lungs. Blood test shows normal CBC PT/PTT, sodium 136 potassium 4.1, normal renal functions. Normal hepatic panel, B12 is 931, troponin negative. Patient's home medications include trazodone, Flomax, sertraline, galantamine, Myrbetriq, Proscar, donepezil 5 mg and melatonin 5 mg. patient does not take any antiplatelet medication at home. Patient denies hypertension or diabetes. He has smoked 1-2 packs per day for 25 years, quit in 1994. He drinks alcohol very little. Per patient's son, he has memory loss going on for last 3 years, slightly getting worse. Patient was diagnosed with NPH in 2019, underwent ventral group" during at [facility] in [place] in 2019. He believes that placement of the shunt helped a lot with his gait, although his memory is still affected. He walks with a walker. At present his speech is fine, slight trouble finding words, and his short-term memory is already affected from before. Patient's son has noticed that he was very argumentative and confrontational, wanted to put on the lines earlier. Review of Systems Denies headache, dizziness. On review of systems reviewed, unremarkable except as mentioned in HPI. Past Medical History Past Medical History: CVA/TIA, Dementia, Memory Impairment, Osteoarthritis (OA), Prostate Disorder Additional Past Medical History / Comment(s): Dementia, DDD, normal pressure hydrocephalus with shunt placement, per pts son they were told he had a previous CVA History of Any Multi-Drug Resistant Organisms: None Reported Past Surgical History: Orthopedic Surgery Additional Past Surgical History / Comment(s): shunt placement Past Anesthesia/Blood Transfusion Reactions: No Reported Reaction Past Psychological History: Depression Smoking Status: Former smoker Past Alcohol Use History: None Reported Additional Past Alcohol Use History / Comment(s): quit smoking in 1994 Past Drug Use History: None Reported Medications and Allergies Home Medications Medication Instructions Recorded Confirmed Type Donepezil [Aricept] 5 mg PO W/BRKFST 06/22/21 09/14/21 History Finasteride [Proscar] 5 mg PO DAILY@209906/22/21 09/14/21 History Fluticasone Nasal [place] [Flonase 1 spray EA NOSTRIL BID 06/22/21 09/14/21 History Nasal [place]] Galantamine HBr [Galantamine ER] 24 mg PO W/BRKFST 06/22/21 09/14/21 History Meclizine [Antivert] 12.5 mg PO TID PRN 06/22/21 09/14/21 History Melatonin 10 mg PO HS@222906/22/21 09/14/21 History Mirabegron [Myrbetriq] 50 mg PO DAILY@209906/22/21 09/14/21 History Omeprazole 20 mg PO W/BRKFST 06/22/21 09/14/21 History Sertraline [Zoloft] 100 mg PO W/BRKFST 06/22/21 09/14/21 History Tamsulosin HCl [Flomax] 0.4 mg PO DAILY@2100 06/22/21 09/14/21 History traZODone HCL [Desyrel] 100 mg PO HS@2230 06/22/21 09/14/21 History Allergies Allergy/AdvReac Type Severity Reaction Status Date / Time No Known Allergies Allergy Verified 09/14/21 15:35 Physical Examination - Vital Signs Vital Signs: Vital Signs Temp Pulse Pulse Resp BP BP Pulse Ox 09/15/21 08:00 98.1 F 67 18 163/97 96 09/15/21 03:35 97.7 F 67 16 161/90 93 L 09/15/21 00:00 97.9 F 60 16 135/68 95 09/14/21 20:00 97.4 F L 60 18 157/83 96 09/14/21 16:09 98.4 F 68 17 157/89 97 09/14/21 15:39 63 18 151/82 97 09/14/21 13:51 97.9 F 78 18 139/98 94 L Intake and Output 09/14/21 09/15/21 09/15/21 22:59 06:59 14:59 Intake Total 240 Balance 240 Intake: Oral 240 Other: Voiding Method Toilet Toilet # Voids 1 1 # Bowel Movements 1 Weight 83.915 kg Patient is an elderly male, in no acute distress. Patient is sitting on the side of the bed. He is fully dressed. Patient is alert awake. Patient states it is September and the year is 2043. After difficulty he was able to recall that he is in [place] but could not tell the state. He knows that he moved from [place] few years ago. He has slow mentation. Speech and language functions are normal. Patient can name most of the objects presented except for "ear lobe" he said "ear tab". He can repeat very well. Attention, concentration is intact and fund of knowledge is limited. Further detailed cognitive function testing deferred. On cranial examination, pupils are equal, round and reacting to light, visual bailey are full on confrontation, with no neglect on double simultaneous duration. His extraocular muscles are intact with no nystagmus. Face is symmetric, tongue protrudes to the midline. Palatal elevation and sensation normal, hearing is moderately decreased and shoulder shrug normal, facial sensation normal. Shoulder shrug normal. On muscle strength testing, there is no pronator drift and the strength is normal in arms and legs distally and proximally. Deep tendon reflexes are symmetric, 1 to 1+ in the arms and legs, and plantars downgoing bilaterally. Sensory to touch is equal with no neglect. Cerebellar function showed no ataxia for mabasc-fc-vlos testing. No dysdiadochokinesia. Tone and bulk of muscles normal. Gait at baseline, per patient's son. He uses a walker. On general examination, there is no carotid bruit or murmur, S1-S2 audible. Abdomen is soft nontender. Chest is clear. Peripheral pulses are present. No edema. Results - Laboratory Findings CBC and BMP: 09/15/21 07:47 09/15/21 07:47 Abnormal Lab Findings: Abnormal Labs 09/14/21 09/14/21 09/15/21 14:08 14:08 07:47 Hgb Plt Count Lymphocytes # 0.4 L Sodium 136 L 135 L Glucose 115 H 09/15/21 07:47 Hgb 12.9 L Plt Count 149 L Lymphocytes # 0.8 L Sodium Glucose Assessment and Plan Assessment: * Possible TIA manifesting with slurred speech and mental confusion. Symptoms mostly resolved. His NIH stroke scale is 0. * History of normal pressure hydrocephalus, status post placement of ventriculoperitoneal shunting in 2019. Currently stable. * Hypertension * X tobacco use * Hard of hearing Plan: * Patient has a possible TIA, versus small stroke. His NIH stroke scale is 0 at this time. * Await MRI of the brain. * Carotid Doppler revealed 35% stenosis in both ICAs. Antegrade flow in both vertebral arteries. * 2-D echo revealed normal left ventricular systolic function, mild mitral and tricuspid regurgitation. Left ventricular ejection fraction is 50-55%. Moderately increased left ventricular wall thickness. Left atrial size is normal. * Hemoglobin A1c 5.7 * B12 931 * Await lipid panel. * Patient was not taking any antiplatelet medication at home. Agree with starting aspirin 325 mg daily. Also started on Lipitor 20 mg daily. * Patient's blood pressure is running high. Long-term BP control to target <130/80. * Telemetry monitoring. * DVT prophylaxis, on Lovenox 40 mg subcu daily. * Neurology will follow. Thank you for the consult.
[2021-09-15 15:52] LABS: Chol/HDL Ratio 4.02 Ratio; LDL Cholesterol,Calculated 84.7 mg/dL (0.0-131.0); VLDL Calculation 16.68 mg/dL (5.00-40.00)
[2021-09-15] MEDS: PATIENT'S OWN (Mirabegron [Myrbetriq] 50 MG Tablet) PO SCH (19:31)
[2021-09-15] MEDS: FINASTERIDE 5 MG TAB PO SCH (19:39)
[2021-09-15] MEDS: TAMSULOSIN 0.4 MG CAP.ER.24H PO SCH (19:39)
[2021-09-15] MEDS: MELATONIN 5 MG TABLET PO SCH (19:39)
[2021-09-16] MEDS: SODIUM CHLORIDE 0.9% 1,000 ML IV SCH (06:26)
[2021-09-16] MEDS: DONEPEZIL 10 MG TAB PO SCH (06:36)
[2021-09-16] MEDS: SERTRALINE 100 MG TAB PO SCH (06:36)
[2021-09-16] MEDS: PANTOPRAZOLE 40 MG TABLET PO SCH (06:36)
[2021-09-16 08:30] LABS: Basophils % (A) 0 %; Eosinophils # (A) 0.1 k/uL (0-0.7); Eosinophils % (A) 2 %; HCT 39.2 % (39.0-53.0); HGB 13.2 gm/dL (13.0-17.5); Lymphocytes # (A) 0.9 k/uL (1.0-4.8); Lymphocytes % (A) 19 %; MCH 30.6 pg (25.0-35.0); MCHC 33.7 g/dL (31.0-37.0); MCV 90.7 fL (80.0-100.0); Mean Platelet Volume 6.9; Monocytes # (A) 0.5 k/uL (0-1.0); Monocytes % (A) 10 %; Neutrophils # (A) 3.1 k/uL (1.3-7.7); Neutrophils % (A) 66 %; Platelet Count 149 k/uL (150-450); RBC 4.32 m/uL (4.30-5.90); RDW 12.8 % (11.5-15.5); WBC 4.7 k/uL (3.8-10.6)
[2021-09-16 08:42] LABS: Albumin 3.5 g/dL (3.5-5.0); Calcium 8.2 mg/dL (8.4-10.2); Total Bilirubin 0.6 mg/dL (0.2-1.3); Total Protein 6.2 g/dL (6.3-8.2)
[2021-09-16] MEDS: ENOXAPARIN 40 MG/0.4 ML SYRINGE SQ SCH (09:37)
[2021-09-16] MEDS: ATORVASTATIN 40 MG TAB PO SCH (09:37)
[2021-09-16] MEDS: ASPIRIN 325 MG TAB PO SCH (09:37)
[2021-09-16] MEDS: FLUTICASONE 50MCG/SPRAY NASAL 16GM EA NOSTRIL SCH (09:39)
[2021-09-16 10:45] VITALS: BP 155/89; PULSE 68; RESP 18; TEMP 98.2
--- NOTE | 2021-09-16 11:06 | MR ---
EXAMINATION TYPE: MR brain wo con DATE OF EXAM: 09/16/2021 10:59 AM COMPARISON: NONE HISTORY: Slurrd speech, confusion, weakness FINDINGS: The ventricles, basal cisterns and sulci overlying the cerebral convexities are moderately enlarged. There is evidence of mild to moderate periventricular white matter ischemic demyelination. Artifact from right parietal LAW RESEARCHER shunt limits portions of the study. Remote deep white matter insults are also noted. No acute edema is seen on diffusion weighted imaging. There is no evidence for midline shift or mass effect. Acute intracranial hemorrhage or extra-axial collection is not evident. The paranasal sinuses and mastoid air cells are well-aerated. IMPRESSION: Portions of the examination are limited by LAW RESEARCHER shunt artifact. Age-related atrophic and chronic small vessel ischemic change. No acute intracranial process at this time.
--- NOTE | 2021-09-16 12:40 | P.PN ---
Subjective Progress Note Date: 09/15/21 Principal diagnosis: History of present is illness: 85-year-old male with past medical history significant for dementia, normal pressure hydrocephalus status post DELIVERY MOTORCYCLE DRIVER shunt in September 2019 at [facility]. The patient presented to the emergency room with his . He is awake and alert but only to herself which is his baseline. stated that he was confused more than usual and he had slurred speech this morning she was concerned possible stroke. Patient's denies any changes in his ambulation normally he uses a walker. The patient is not very good historian not able to provide any history for me secondary to his advanced dementia. He denies any chest pain or shortness of breath. Workup in the emergency room including computed tomography scan of the head without contrast showed no acute intracranial hemorrhage or gross acute cortical infarct. Stable supratentorial ventricular size as well as the position of the known DELIVERY MOTORCYCLE DRIVER shunt. Interval history: She was examined at the bedside. He is alert oriented to himself which is his baseline. Discussed with the son at the bedside. He is feeling better today. He denies any chest pain or shortness of breath. MRI still pending Physical examination: General: non toxic, no distress, appears at stated age Derm: warm, dry Head: atraumatic, normocephalic, symmetric Eyes: EOMI, no lid lag, anicteric sclera Mouth: no lip lesion, mucus membranes moist Cardiovascular: S1S2 reg, no murmur, positive posterior tibial pulse bilateral, Lungs: CTA bilateral, no rhonchi, no rales , no accessory muscle use Abdominal: soft, nontender to palpation, no guarding, no appreciable organomegaly Ext: no gross muscle atrophy, no edema, no contractures Neuro: CN II-XI grossly intact, no focal neuro deficits Psych: Alert, oriented only to himself, appropriate affect Assessment and plan #Altered mental status with slurred speech -Admit to hospital to rule out stroke -Stroke protocol -Check 2-D echo -LDL is 84 A1c is 5.7 -Neuro consultation -Normal B12 level -Neuro checks -MRI of the brain without contrast ordered -Resume aspirin and high-dose statins -Carotid Doppler pending result #History history of normal pressure hydrocephalus status post DELIVERY MOTORCYCLE DRIVER shunt September 2019 #Dementia -Resume Aricept. #BPH -Resume Proscar and Flomax #Anxiety and depression -Resume Zoloft #DVT prophylaxis with Lovenox Objective - Vital Signs Vital signs: Vital Signs Temp 98.2 F 09/16/21 08:00 Pulse 68 09/16/21 08:00 Resp 18 09/16/21 08:00 BP 155/89 09/16/21 08:00 Pulse Ox 95 09/16/21 08:00 FiO2 21 09/15/21 15:56 Intake & Output 09/15/21 09/16/21 09/16/21 18:59 06:59 18:59 Intake Total 720 240 Balance 720 240 Intake: Oral 720 240 Other: Voiding Method Toilet # Voids 1 # Bowel Movements 1 - Labs CBC & Chem 7: 09/16/21 08:01 09/16/21 08:01 Labs: Abnormal Lab Results - Last 24 Hours (Table) 09/15/21 09/16/21 09/16/21 Range/Units 07:47 08:01 08:01 Plt Count 149 L (150-450) k/uL Lymphocytes # 0.9 L (1.0-4.8) k/uL Sodium 136 L (137-145) mmol/L BUN 21 H (9-20) mg/dL Calcium 8.2 L (8.4-10.2) mg/dL Total Protein 6.2 L (6.3-8.2) g/dL HDL Cholesterol 33.60 L (40.00-60.00) mg/dL
--- NOTE | 2021-09-16 12:44 | P.DS ---
Providers Date of admission: 09/14/21 15:32 Expected date of discharge: 09/16/21 Attending physician: Mariana Lin DO Consults: 09/14/21 15:33 Consult Physician Urgent Consulting Provider: Azalea Chavez Consult Reason/Comments: cva Do you want consulting provider notified?: Yes Primary care physician: Manny Farias MD Hospital Course: History of present is illness: 85-year-old male with past medical history significant for dementia, normal pressure hydrocephalus status post LOG MARKER shunt in September 2019 at [facility]. The patient presented to the emergency room with his . He is awake and alert but only to herself which is his baseline. stated that he was confused more than usual and he had slurred speech this morning she was concerned possible stroke. Patient's denies any changes in his ambulation normally he uses a walker. The patient is not very good historian not able to provide any history for me secondary to his advanced dementia. He denies any chest pain or shortness of breath. Workup in the emergency room including computed tomography scan of the head without contrast showed no acute intracranial hemorrhage or gross acute cortical infarct. Stable supratentorial ventricular size as well as the position of the known LOG MARKER shunt. Interval history: She was examined at the bedside. He is alert oriented to himself which is his baseline. Discussed with the son at the bedside. He is feeling better today. He denies any chest pain or shortness of breath. MRI still pending Physical examination: General: non toxic, no distress, appears at stated age Derm: warm, dry Head: atraumatic, normocephalic, symmetric Eyes: EOMI, no lid lag, anicteric sclera Mouth: no lip lesion, mucus membranes moist Cardiovascular: S1S2 reg, no murmur, positive posterior tibial pulse bilateral, Lungs: CTA bilateral, no rhonchi, no rales , no accessory muscle use Abdominal: soft, nontender to palpation, no guarding, no appreciable organomegaly Ext: no gross muscle atrophy, no edema, no contractures Neuro: CN II-XI grossly intact, no focal neuro deficits Psych: Alert, oriented only to himself, appropriate affect Hospital course in detail the problem list #Altered mental status with slurred speech #Transient ischemic attack #Acute stroke has been ruled out- -Symptoms resolved -Admit to hospital to rule out stroke -Stroke protocol -Check 2-D echo -LDL is 84 A1c is 5.7 -2-D echo normal systolic function with mild mitral and tricuspid regurgitation. -Neuro cleared the patient for discharge -Normal B12 level -Carotid Doppler showed 35% stenosis in both internal carotid arteries. -MRI without contrast showed no acute process -Discharge the patient on baby aspirin and Lipitor 20 mg daily #History history of normal pressure hydrocephalus status post LOG MARKER shunt September 2019 #Dementia -Resume Aricept. #BPH -Resume Proscar and Flomax #Anxiety and depression -Resume Zoloft Joseph in the discharge process 33 minutes Patient Condition at Discharge: Stable Plan - Discharge Summary Discharge Rx Participant: No New Discharge Prescriptions: New Aspirin 81 mg PO DAILY 30 Days #30 tab Atorvastatin [Lipitor] 20 mg PO DAILY 30 Days #30 tablet Continue Mirabegron [Myrbetriq] 50 mg PO DAILY@2099 Meclizine [Antivert] 12.5 mg PO TID PRN PRN Reason: Vertigo traZODone HCL [Desyrel] 100 mg PO HS@2229 Tamsulosin HCl [Flomax] 0.4 mg PO DAILY@2100 Omeprazole 20 mg PO W/BRKFST Sertraline [Zoloft] 100 mg PO W/BRKFST Galantamine HBr [Galantamine ER] 24 mg PO W/BRKFST Fluticasone Nasal [place] [Flonase Nasal [place]] 1 spray EA NOSTRIL BID Finasteride [Proscar] 5 mg PO DAILY@2100 Donepezil [Aricept] 5 mg PO W/BRKFST Melatonin 10 mg PO HS@2229 Discharge Medication List Donepezil [Aricept] 5 mg PO W/BRKFST 06/22/21 [History] Finasteride [Proscar] 5 mg PO DAILY@209906/22/21 [History] Fluticasone Nasal [place] [Flonase Nasal [place]] 1 spray EA NOSTRIL BID 06/22/21 [History] Galantamine HBr [Galantamine ER] 24 mg PO W/BRKFST 06/22/21 [History] Meclizine [Antivert] 12.5 mg PO TID PRN 06/22/21 [History] Melatonin 10 mg PO HS@222906/22/21 [History] Mirabegron [Myrbetriq] 50 mg PO DAILY@209906/22/21 [History] Omeprazole 20 mg PO W/BRKFST 06/22/21 [History] Sertraline [Zoloft] 100 mg PO W/BRKFST 06/22/21 [History] Tamsulosin HCl [Flomax] 0.4 mg PO DAILY@209906/22/21 [History] traZODone HCL [Desyrel] 100 mg PO HS@222906/22/21 [History] Aspirin 81 mg PO DAILY 30 Days #30 tab 09/16/21 [Rx] Atorvastatin [Lipitor] 20 mg PO DAILY 30 Days #30 tablet 09/16/21 [Rx] Follow up Appointment(s)/Referral(s): Manny Farias MD [Primary Care Provider] - 1-2 days Discharge Disposition: HOME SELF-CARE
== END 2021-09-16 14:38 | disposition home or self-care (01) | DRG 69 ==
LOC: EC 13:42 → 3SCARD 15:32
PROVIDERS: ADMIT Internal Medicine; ATTEND Internal Medicine
DX: G45.9 Transient cerebral ischemic attack, unspecified (principal); G91.2 (Idiopathic) normal pressure hydrocephalus; J98.11 Atelectasis; I48.21 Permanent atrial fibrillation; F03.90 Unspecified dementia, unspecified severity, without behavioral disturbance, psychotic disturbance, mood disturbance, and anxiety; I10 Essential (primary) hypertension; R47.81 Slurred speech; R26.2 Difficulty in walking, not elsewhere classified; I08.1 Rheumatic disorders of both mitral and tricuspid valves; R41.3 Other amnesia; N39.498 Other specified urinary incontinence; N40.0 Benign prostatic hyperplasia without lower urinary tract symptoms; F32.A Depression, unspecified; F41.9 Anxiety disorder, unspecified; H91.90 Unspecified hearing loss, unspecified ear; Z98.2 Presence of cerebrospinal fluid drainage device; Z79.899 Other long term (current) drug therapy; Z86.73 Personal history of transient ischemic attack (TIA), and cerebral infarction without residual deficits; Z87.891 Personal history of nicotine dependence
CPT/HCPCS: 36415; 70450; 70551; 71046; 80053; 80061; 82607; 83036; 83735; 84484; 85025; 85610; 85730; 93306; 93880; 94760; 99285

== ENCOUNTER → 2021-10-13 | Outpatient (CLI) | payer BC ==
--- NOTE | 2021-10-14 07:44 | MR ---
EXAMINATION TYPE: MR lumbar spine wo/w con DATE OF EXAM: 10/13/2021 COMPARISON: HISTORY: SPONDYLS W/O MYELOPATHY OR RADICULOPATHY, low back pain CONTRAST: 8 mL intravenous Gadavist. TECHNIQUE: Multiplanar, multisequence images of the lumbar spine were acquired. FINDINGS: L5-S1: There is loss of disc height is normal. No significant disc bulge or focal disc herniation is evident. No spinal canal stenosis. No foraminal stenosis. . L4-L5: Facet hypertrophy has posterior lateral thecal sac compression greater on the right. This exte nds towards the foramen with moderate foraminal narrowing on the right. No AP spinal canal stenosis. L3-L4: Broad-based disc bulge is mild anterior thecal sac compression. Facet hypertrophy and ligament um flavum laxity of mild posterior lateral thecal sac compression. No spinal canal stenosis is presen t. Disc space narrowing is present. Mild foraminal narrowing is present. L2-L3: There is loss of disc height at this level. Endplate spurring is mild intrathecal sac flatteni ng. No spinal canal stenosis. No foraminal stenosis. Facet hypertrophy is present. L1-L2: No significant disc bulge or disc herniation. No spinal canal stenosis. No foraminal stenosi s. . T12-L1: No significant disc bulge or disc herniation. No spinal canal stenosis. No foraminal stenos is. . No abnormal enhancement. IMPRESSION: 1. Degenerative disc changes with loss of disc height at L2-3 and L5-S1. 2. Disc bulge with mild ventral thecal sac flattening L3-4. 3. Facet hypertrophy within the lower lumbar spine. This may be contributing to some moderate foramin al narrowing on the right at L4-5.
== END | disposition home or self-care (01) ==
LOC: RADMRIMAIN 10:27
PROVIDERS: ATTEND Physical Medicine & Rehabilitation
DX: M47.817 Spondylosis without myelopathy or radiculopathy, lumbosacral region (principal); M51.36 Other intervertebral disc degeneration, lumbar region; M54.2 Cervicalgia; R51.9 Headache, unspecified
CPT/HCPCS: 72158; A9585

== ENCOUNTER → 2021-12-24 | Outpatient (CLI) | payer MEDICARE, BC ==
--- NOTE | 2021-12-24 15:04 | XR ---
EXAMINATION TYPE: XR knee complete RT DATE OF EXAM: 12/24/2021 COMPARISON: None HISTORY: Pain TECHNIQUE: 3 view right knee FINDINGS: There is narrowing of the medial lateral compartment joint spaces. Some lateral tibial plat eau spurring is noted. No joint effusion is evident. Follow up exams can be performed 7-10 days from acute trauma for continued pain. IMPRESSION: 1. Mild degenerative changes right knee.
--- NOTE | 2021-12-24 15:06 | XR ---
EXAMINATION TYPE: XR femur RT DATE OF EXAM: 12/24/2021 COMPARISON: None HISTORY: Pain TECHNIQUE: 2 view right femur FINDINGS: Femoral head articulates with the acetabulum. Degenerative changes are at the knee. Right k nee joint space is preserved. No joint effusion is evident. No acute fracture or dislocation is evident. IMPRESSION: 1. No acute osseous abnormality right femur
--- NOTE | 2021-12-24 15:07 | XR ---
EXAMINATION TYPE: XR shoulder complete RT DATE OF EXAM: 12/24/2021 COMPARISON: NONE HISTORY: Pain TECHNIQUE: Shoulder examined in 3 projections FINDINGS: The humeral head articulates with the glenoid. The acromio-clavicular junction is normal. No acute fractures or dislocations are evident. A follow up study can be performed 7-10 days from acute trauma for continued pain. IMPRESSION: 1. No acute osseous abnormality right shoulder
== END | disposition home or self-care (01) ==
LOC: RADXRMAIN 12:53
PROVIDERS: ATTEND Internal Medicine
DX: M25.511 Pain in right shoulder (principal); M25.561 Pain in right knee

== ENCOUNTER 2022-01-22 09:49 | Inpatient (IN) | payer BC, MEDICARE ==
[2022-01-22] MEDS ORDERED: SODIUM CHLORIDE 0.9% 500 ML 500 ML IV ONE (10:03)
--- NOTE | 2022-01-22 10:08 | ED ---
General Adult HPI - General Chief complaint: Altered Mental Status Stated complaint: AMS Time Seen by Provider: 01/22/22 09:55 Source: patient, EMS, RN notes reviewed, old records reviewed Mode of arrival: EMS Limitations: altered mental status - History of Present Illness Initial comments: This is an 86-year-old male who presents emergency Department with a past medical history significant for dementia. Patient was recently diagnosed with cold. This morning the patient was found to be less responsive and he was lying in emesis. And he appeared to be having a little bit of difficulty breathing so they wanted him to be evaluated for aspiration pneumonia. Patient has no fever chills history. Patient himself states in no pain but he is very unreliable because his baseline is alert and oriented 1. At this time there is no further history because is no family or caregivers with - Related Data Home Medications Medication Instructions Recorded Confirmed Donepezil [Aricept] 5 mg PO W/BRKFST 06/22/21 09/14/21 Finasteride [Proscar] 5 mg PO DAILY@209906/22/21 09/14/21 Fluticasone Nasal [place] [Flonase 1 spray EA NOSTRIL BID 06/22/21 09/14/21 Nasal [place]] Galantamine HBr [Galantamine ER] 24 mg PO W/BRKFST 06/22/21 09/14/21 Meclizine [Antivert] 12.5 mg PO TID PRN 06/22/21 09/14/21 Melatonin 10 mg PO HS@222906/22/21 09/14/21 Mirabegron [Myrbetriq] 50 mg PO DAILY@209906/22/21 09/14/21 Omeprazole 20 mg PO W/BRKFST 06/22/21 09/14/21 Sertraline [Zoloft] 100 mg PO W/BRKFST 06/22/21 09/14/21 Tamsulosin HCl [Flomax] 0.4 mg PO DAILY@209906/22/21 09/14/21 traZODone HCL [Desyrel] 100 mg PO HS@222906/22/21 09/14/21 Previous Rx's Medication Instructions Recorded Aspirin 81 mg PO DAILY 30 Days #30 tab 09/16/21 Atorvastatin [Lipitor] 20 mg PO DAILY 30 Days #30 tablet 09/16/21 Allergies Allergy/AdvReac Type Severity Reaction Status Date / Time No Known Allergies Allergy Verified 09/14/21 15:35 Review of Systems ROS Statement: Those systems with pertinent positive or pertinent negative responses have been documented in the HPI. ROS Other: All systems not noted in ROS Statement are negative. Past Medical History Past Medical History: CVA/TIA, Dementia, Memory Impairment, Osteoarthritis (OA), Prostate Disorder Additional Past Medical History / Comment(s): Dementia, DDD, normal pressure hydrocephalus with shunt placement, per pts son they were told he had a previous CVA History of Any Multi-Drug Resistant Organisms: None Reported Past Surgical History: Orthopedic Surgery Additional Past Surgical History / Comment(s): shunt placement Past Anesthesia/Blood Transfusion Reactions: No Reported Reaction Past Psychological History: Depression Smoking Status: Former smoker Past Alcohol Use History: None Reported Past Drug Use History: None Reported General Exam - General Exam Comments Initial Comments: GENERAL: Patient is well-developed and well-nourished. Patient is nontoxic and well- hydrated and is in no acute distress. ENT: Neck is soft and supple. No significant lymphadenopathy is noted. Oropharynx is clear. Moist mucous membranes. Neck has full range of motion without eliciting any pain. EYES: The sclera were anicteric and conjunctiva were pink and moist. Extraocular movements were intact and pupils were equal round and reactive to light. Eyelids were unremarkable. PULMONARY: Unlabored respirations. Good breath sounds bilaterally. No audible rales rhonchi or wheezing was noted. CARDIOVASCULAR: There is a regular rate and rhythm without any murmurs gallops or rubs. ABDOMEN: Soft and nontender with normal bowel sounds. SKIN: Skin is clear with no lesions or rashes and otherwise unremarkable. NEUROLOGIC: Patient is alert and oriented x3. Cranial nerves II through XII are grossly intact. Motor and sensory are also intact. Normal speech, volume and content. Symmetrical smile. MUSCULOSKELETAL: Normal extremities with adequate strength and full range of motion. LYMPHATICS: No significant lymphadenopathy is noted PSYCHIATRIC: Normal psychiatric evaluation. Limitations: altered mental status Course Vital Signs 01/22/22 09:51 Temperature 98.4 F Pulse Rate 68 Respiratory 16 Rate Blood Pressure 139/74 O2 Sat by Pulse 94 L Oximetry Medical Decision Making - Medical Decision Making Chest x-ray shows no acute abnormality. I went back in the room and the son was there and he indicated to me that the p atient's mental status was significantly altered to his baseline so patient will be admitted. I spoke with sounds physician's he agreed to admit the patient admitted the patient wrote admitting orders. - Lab Data Result diagrams: 01/22/22 11:05 01/22/22 11:05 Lab Results 01/22/22 01/22/22 01/22/22 Range/Units 11:05 11: 11:05 WBC 7.5 (3.8-10.6) k/uL RBC 4.43 (4.30-5.90) m/uL Hgb 14.1 (13.0-17.5) gm/dL Hct 40.4 (39.0-53.0) % MCV 91.2 (80.0-100.0) fL MCH 31.8 (25.0-35.0) pg MCHC 34.8 (31.0-37.0) g/dL RDW 12.0 (11.5-15.5) % Plt Count Not Reportable MPV 10.2 Neutrophils % 82 % Lymphocytes % 5 % Monocytes % 9 % Eosinophils % 1 % Basophils % 0 % Neutrophils # 6.2 (1.3-7.7) k/uL Lymphocytes # 0.4 L (1.0-4.8) k/uL Monocytes # 0.7 (0-1.0) k/uL Eosinophils # 0.1 (0-0.7) k/uL Basophils # 0.0 (0-0.2) k/uL Differential Comment Manual Slide Review Performed PT 10.6 (9.0-12.0) sec INR 1.0 (<1.2) APTT 21.8 L (22.0-30.0) sec Sodium 135 L (137-145) mmol/L Potassium 4.3 (3.5-5.1) mmol/L Chloride 100 (98-107) mmol/L Carbon Dioxide 25 (22-30) mmol/L Anion Gap 10 mmol/L BUN 18 (9-20) mg/dL Creatinine 0.78 (0.66-1.25) mg/dL Est GFR (CKD-EPI)AfAm >90 (>60 ml/min/1.73 sqM) Est GFR (CKD-EPI)NonAf 83 (>60 ml/min/1.73 sqM) Glucose 99 (74-99) mg/dL Calcium 8.9 (8.4-10.2) mg/dL Total Bilirubin 1.1 (0.2-1.3) mg/dL AST 35 (17-59) U/L ALT 20 (4-49) U/L Alkaline Phosphatase 53 (38-126) U/L Troponin I (0.000-0.034) ng/mL Total Protein 6.8 (6.3-8.2) g/dL Albumin 4.2 (3.5-5.0) g/dL 01/22/22 Range/Units 11:05 WBC (3.8-10.6) k/uL RBC (4.30-5.90) m/uL Hgb (13.0-17.5) gm/dL Hct (39.0-53.0) % MCV (80.0-100.0) fL MCH (25.0-35.0) pg MCHC (31.0-37.0) g/dL RDW (11.5-15.5) % Plt Count MPV Neutrophils % % Lymphocytes % % Monocytes % % Eosinophils % % Basophils % % Neutrophils # (1.3-7.7) k/uL Lymphocytes # (1.0-4.8) k/uL Monocytes # (0-1.0) k/uL Eosinophils # (0-0.7) k/uL Basophils # (0-0.2) k/uL Differential Comment Manual Slide Review PT (9.0-12.0) sec INR (<1.2) APTT (22.0-30.0) sec Sodium (137-145) mmol/L Potassium (3.5-5.1) mmol/L Chloride (98-107) mmol/L Carbon Dioxide (22-30) mmol/L Anion Gap mmol/L BUN (9-20) mg/dL Creatinine (0.66-1.25) mg/dL Est GFR (CKD-EPI)AfAm (>60 ml/min/1.73 sqM) Est GFR (CKD-EPI)NonAf (>60 ml/min/1.73 sqM) Glucose (74-99) mg/dL Calcium (8.4-10.2) mg/dL Total Bilirubin (0.2-1.3) mg/dL AST (17-59) U/L ALT (4-49) U/L Alkaline Phosphatase (38-126) U/L Troponin I 0.014 (0.000-0.034) ng/mL Total Protein (6.3-8.2) g/dL Albumin (3.5-5.0) g/dL Disposition Clinical Impression: COVID, Altered mental status Disposition: ADMITTED IP TO THIS HOSP Referrals: Manny Farias MD [Primary Care Provider] - 1-2 days Time of Disposition: 14:15
--- NOTE | 2022-01-22 11:36 | XR ---
EXAMINATION TYPE: XR chest 2V DATE OF EXAM: 01/22/2022 10:20 AM COMPARISON: Chest radiographs from 11/01/2021. TECHNIQUE: XR chest 2V Frontal and lateral views of the chest. CLINICAL INDICATION:Male, 86 years old with history of altered mental status; FINDINGS: Lungs/Pleura: Low lung volumes are present. There is no evidence of pleural effusion, focal consolida tion, or pneumothorax. Pulmonary vascularity: Unremarkable. Heart/mediastinum: Cardiomediastinal silhouette is unremarkable. Musculoskeletal: No acute osseous pathology. Other findings: None Lines/Tubes: Ventriculoperitoneal shunt tubing noted along the right aspect of the radiograph. IMPRESSION: Low lung volumes, No acute cardiopulmonary disease/process.
[2022-01-22 12:37] LABS: Basophils % (A) 0 %; Eosinophils # (A) 0.1 k/uL (0-0.7); Eosinophils % (A) 1 %; HCT 40.4 % (39.0-53.0); HGB 14.1 gm/dL (13.0-17.5); Lymphocytes # (A) 0.4 k/uL (1.0-4.8); Lymphocytes % (A) 5 %; MCH 31.8 pg (25.0-35.0); MCHC 34.8 g/dL (31.0-37.0); MCV 91.2 fL (80.0-100.0); Mean Platelet Volume 10.2; Monocytes # (A) 0.7 k/uL (0-1.0); Monocytes % (A) 9 %; Neutrophils # (A) 6.2 k/uL (1.3-7.7); Neutrophils % (A) 82 %; RBC 4.43 m/uL (4.30-5.90); WBC 7.5 k/uL (3.8-10.6)
[2022-01-22 12:40] LABS: ALT 20 U/L (4-49); African American GFR (CKD) >90 (>60 ml/min/1.73 sqM); Albumin 4.2 g/dL (3.5-5.0); Anion Gap 10 mmol/L; Blood Urea Nitrogen 18 mg/dL (9-20); Calcium 8.9 mg/dL (8.4-10.2); Carbon Dioxide 25 mmol/L (22-30); Chloride 100 mmol/L (98-107); Glucose 99 mg/dL (74-99); Non-African American GFR(CKD) 83 (>60 ml/min/1.73 sqM); Sodium 135 mmol/L (137-145); Total Bilirubin 1.1 mg/dL (0.2-1.3); Total Protein 6.8 g/dL (6.3-8.2)
[2022-01-22 12:43] LABS: AST 35 U/L (17-59); Alkaline Phosphatase 53 U/L (38-126); Potassium 4.3 mmol/L (3.5-5.1)
[2022-01-22 12:50] LABS: Partial Thromboplastin Time 21.8 sec (22.0-30.0); Prothrombin Time 10.6 sec (9.0-12.0)
[2022-01-22 14:12] LABS: Appearance,Urine Clear (Clear); Bilirubin,Urine Negative (Negative); Blood,Urine Negative (Negative); Color,Urine Yellow; Glucose,Urine (UA) Negative (Negative); Ketones,Urine Trace (Negative); Leukocyte Esterase,Urine Negative (Negative); Nitrite,Urine Negative (Negative); Protein,Urine Trace (Negative); Urobilinogen,Urine <2.0 mg/dL (<2.0)
[2022-01-22] MEDS ORDERED: SODIUM CHLORIDE 0.9% 1,000 ML IV ONE (14:15)
[2022-01-22 14:32] LABS: Amphetamine Screen,Urine Not Detected (NotDetected); Barbiturate Screen,Urine Not Detected (NotDetected); Benzodiazepines Screen,Urine Not Detected (NotDetected); Cocaine Screen,Urine Not Detected (NotDetected); Methadone Screen, Urine Not Detected (NotDetected); Opiate Screen,Urine Not Detected (NotDetected); Oxycodone Screen, Urine Not Detected (NotDetected); Phencyclidine Screen,Urine Not Detected (NotDetected); Tricyclic Antidepressant,Urine Not Detected (NotDetected); Urn Cannabinoid Scrn Not Detected (NotDetected)
[2022-01-22] MEDS ORDERED: DOCUSATE 100 MG CAP PO PRN (15:30)
[2022-01-22] MEDS ORDERED: MECLIZINE 12.5 MG TAB PO PRN (15:30)
--- NOTE | 2022-01-22 15:58 | P.HPIM ---
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 He presented to the emergency department for a chief complaint of worsening mental status. Patient is a resident at [facility] [place] [facility] and was reportedly found by staff to have increased confusion lying in his bed with reports of green bile emesis noted on patient and his bed sheets. Patient is currently alert and oriented 1 with baseline mentation per patient's son at bedside being alert and oriented 2. Patient's son reports that his dad has had worsening mentation over the past 5 years after his diagnosis of dementia and was recently placed in [facility] assisted living facility 3 weeks ago, but states his father is typically is alert to person and place and for the most part functions independently and only requires minimal redirection and ambulates independently with a walker. He states his dad was at his baseline mentation yesterday evening when he spoke with him and denies any known recent illnesses/infections, fevers, or complaints from his father. He reports that his mother was recently diagnosed with COVID and that his father was tested at [facility] this morning and this was also reported as positive. Upon evaluation patient is alert to self only but appears to be answering yes and no questions appropriately. Patient states, "not anymore". When asked further patient reports he did have pain in right shoulder and his head but states "its gone now." He denies experiencing any dizziness, lightheadedness, changes in vision or hearing, chest pain or palpitations, shortness of breath, cough, or experiencing any numbness/tingling/weakness in his extremities. In the emergency department patient underwent full evaluation. CBC, CMP, and coags all unremarkable. Urinalysis negative for infection and urine drug screen negative. EKG showing sinus rhythm at 64 bpm with a right bundle branch block and no noted T-wave or ST abnormalities showing no signs of acute ischemia. Chest x-ray negative for acute cardiopulmonary process reporting no evidence of pleural effusion, consolidation, or pneumothorax. Covid PCR positive. Patient admitted under our services at this time. Review of systems: Pertinent positives and negatives as discussed in HPI, a complete review of systems was performed and all other systems are negative. Physical exam: Vital signs reviewed and stable. General: Nontoxic, no distress and appears stated age. Derm: Skin warm and dry, normal coloration for ethnicity. Head: Atraumatic, normocephalic and symmetric. Eyes: EOMs intact, no lid lag, and anicteric sclera Mouth: no lip lesions, mucus membranes moist Cardiovascular: regular rate and rhythm with normal S1S2, no murmur, positive posterior tibial pulses bilaterally, and cap refill < 2 seconds. Lungs: Respirations even, regular, and unlabored on room air. Lungs CTA bilaterally, no rhonchi, no rales, no wheezing, and no accessory muscle usage. Abdominal: soft, nontender to palpation, no guarding, no appreciable organomegaly Ext: ROM intact. No gross muscle atrophy, no edema, no contractures Neuro: Speech clear, face symmetrical and CN II-XII grossly intact with no noted focal neuro deficits. GCS 14. Patient moving all extremities without any difficulties appears to have equal strength and symmetrical movement. Psych: Alert and oriented to person only. Confused to place, time, and situation. And is calm and pleasant and easily redirectable. Assessment and Plan of Care: Acute metabolic encephalopathy Alzheimer's Dementia Normal pressure hydrocephalus status post shunt History of CVA, no reported residual deficits -Acute metabolic encephalopathy of unclear etiology. Possibly infectious versus neurologic as patient is currently positive for Covid infection but also has history of dementia, CVA, and normal pressure hydrocephalus status post shunt. In addition patient also reported previously having headache and right shoulder pain. -CT head without contrast to be completed -Neuro checks every 4 hours -Fall precautions -Safe and supportive care with redirection as needed -Telemetry monitoring -Pending results of computed tomography scan, may consider neurology consult. COVID 19 infection -Oxygenation to be administered if needed and titrated as needed to maintain SPO2 equal to or greater than 90% -Telemetry monitoring. -Continue trending inflammatory markers -Encourage Incentive Spirometry 10-15x hourly while awake -Continue vitamin C, Vitamin D, and Zinc. -DVT prophylaxis with Lovenox. -Strict Droplet plus Contact precautions BPH -Continue medication regimen with Mirabegron and tamsulosin. The patient is admitted with an anticipated less than 2 midnight stay for evaluation of acute metabolic encephalopathy CODE STATUS: Full code DVT prophylaxis: Lovenox Discussed with: Patient, patient's son at bedside and RN Anticipated discharge date: 1-[address]: Return to [facility] A total of 43 minutes was spent on the care of this complex patient more than 50% of the time was spent in counseling and care coordination. Past Medical History Past Medical History: CVA/TIA, Dementia, Memory Impairment, Osteoarthritis (OA), Prostate Disorder Additional Past Medical History / Comment(s): Dementia, DDD, normal pressure hydrocephalus with shunt placement, per pts son they were told he had a previous CVA History of Any Multi-Drug Resistant Organisms: None Reported Past Surgical History: Orthopedic Surgery Additional Past Surgical History / Comment(s): shunt placement Past Anesthesia/Blood Transfusion Reactions: No Reported Reaction Past Psychological History: Depression Smoking Status: Former smoker Past Alcohol Use History: None Reported Past Drug Use History: None Reported Medications and Allergies Home Medications Medication Instructions Recorded Confirmed Type Donepezil [Aricept] 5 mg PO W/BRKFST 06/22/21 09/14/21 History Finasteride [Proscar] 5 mg PO DAILY@209906/22/21 09/14/21 History Fluticasone Nasal [place] [Flonase 1 spray EA NOSTRIL BID 06/22/21 09/14/21 History Nasal [place]] Galantamine HBr [Galantamine ER] 24 mg PO W/BRKFST 06/22/21 09/14/21 History Meclizine [Antivert] 12.5 mg PO TID PRN 06/22/21 09/14/21 History Melatonin 10 mg PO HS@222906/22/21 09/14/21 History Mirabegron [Myrbetriq] 50 mg PO DAILY@209906/22/21 09/14/21 History Omeprazole 20 mg PO W/BRKFST 06/22/21 09/14/21 History Sertraline [Zoloft] 100 mg PO W/BRKFST 06/22/21 09/14/21 History Tamsulosin HCl [Flomax] 0.4 mg PO DAILY@209906/22/21 09/14/21 History traZODone HCL [Desyrel] 100 mg PO HS@222906/22/21 09/14/21 History Aspirin 81 mg PO DAILY 30 Days #30 tab 09/16/21 Rx Atorvastatin [Lipitor] 20 mg PO DAILY 30 Days #30 tablet 09/16/21 Rx Allergies Allergy/AdvReac Type Severity Reaction Status Date / Time No Known Allergies Allergy Verified 01/22/22 15:15 Physical Exam Vitals: Vital Signs Temp Pulse Resp BP Pulse Ox 01/22/22 14:00 73 18 155/79 96 01/22/22 12:00 60 17 132/73 95 01/22/22 09:51 98.4 F 68 16 139/74 94 L Intake and Output 01/21/22 01/22/22 01/22/22 22:59 06:59 14:59 Other: Weight 74.843 kg Results CBC & Chem 7: 01/22/22 11:05 01/22/22 11:05 Labs: Abnormal Lab Results - Last 24 Hours (Table) 01/22/22 01/22/22 01/22/22 Range/Units 11:05 11:05 11:05 Lymphocytes # 0.4 L (1.0-4.8) k/uL APTT 21.8 L (22.0-30.0) sec Sodium 135 L (137-145) mmol/L Urine Protein (Negative) Urine Ketones (Negative) 01/22/22 Range/Units 11:08 Lymphocytes # (1.0-4.8) k/uL APTT (22.0-30.0) sec Sodium (137-145) mmol/L Urine Protein Trace H (Negative) Urine Ketones Trace H (Negative)
--- NOTE | 2022-01-22 16:39 | CT ---
EXAMINATION TYPE: CT brain wo con DATE OF EXAM: 01/22/2022 COMPARISON: 11/01/2021 HISTORY: AMS and increased confusion. hx of shunt. CT DLP: 1799.10 mGycm Automated exposure control for dose reduction was used. FINDINGS: There is a right ventricular shunt entering the right parietal region terminating in the anterior hor n left lateral ventricle. Is unchanged position compared to the prior study. The ventricles, basal cisterns and sulci over convexities are markedly enlarged but there is no mass effect or shift of midline structures. The size of ventricular system is stable compared to the prior study. There is no acute intra or extra-axial hemorrhage. . Posterior fossa is grossly normal. The intraorbital contents appear normal and symmetric. IMPRESSION: 1. No acute bleed or mass effect. 2. Right ventricular shunt catheter unchanged in position. 3. Marked generalized atrophy. Ventricular system unchanged in size compared to previous IMPRESSION:
[2022-01-22] MEDS: FLUTICASONE 50MCG/SPRAY NASAL 16GM EA NOSTRIL SCH (19:49)
[2022-01-22] MEDS: MELATONIN 5 MG TABLET PO SCH (19:49)
[2022-01-22] MEDS: ATORVASTATIN 20 MG TAB PO SCH (19:49)
[2022-01-22] MEDS: MEMANTINE 5 MG TAB PO SCH (19:49)
[2022-01-22] MEDS: traZODone HCL 100 MG TAB PO SCH (19:49)
[2022-01-23] MEDS: TAMSULOSIN 0.4 MG CAP.ER.24H PO SCH (09:03)
[2022-01-23] MEDS: ASPIRIN 81 MG PO SCH (09:03)
[2022-01-23] MEDS: ASCORBIC ACID 500 MG TAB PO SCH (09:03)
[2022-01-23] MEDS: DONEPEZIL 10 MG TAB PO SCH (09:03)
[2022-01-23] MEDS: polyethylene glycoL 3350 17 GM POWD.PACK PO SCH (09:03)
[2022-01-23] MEDS: FINASTERIDE 5 MG TAB PO SCH (09:04)
[2022-01-23] MEDS: ENOXAPARIN 40 MG/0.4 ML SYRINGE SQ SCH (09:04)
[2022-01-23] MEDS: ZINC SULFATE 220 MG CAP PO SCH (09:04)
[2022-01-23] MEDS: SERTRALINE 100 MG TAB PO SCH (09:04)
[2022-01-23] MEDS: CHOLECALCIFEROL 25 MCG (1000 IU) TABLET PO SCH (09:04)
[2022-01-23] MEDS: PANTOPRAZOLE 40 MG TABLET PO SCH (09:13)
[2022-01-23] MEDS: FLUTICASONE 50MCG/SPRAY NASAL 16GM EA NOSTRIL SCH ×2 (09:13→20:03)
[2022-01-23] MEDS: MEMANTINE 5 MG TAB PO SCH (09:13)
[2022-01-23] MEDS: PATIENT'S OWN (Mirabegron [Myrbetriq] 50 MG Tablet) PO SCH (10:06)
[2022-01-23 11:16] LABS: HGB 12.7 g/dL (13.0-17.0); MCH 30.8 pg (27.0-32.0); MCHC 33.4 g/dL (32.0-37.0); Mean Platelet Volume 9.4 fL (9.5-12.2); NRBC Per 100 WBC 0 /100 WBCS (0.0-0.0); Platelet Count 167 X 10*3/uL (140-440); RBC 4.13 X 10*6/uL (4.40-5.60); RDW 11.9 % (11.5-14.5); WBC 7.18 X 10*3/uL (4.50-10.00)
[2022-01-23 11:56] LABS: ALT 18 U/L (10-49); AST 38 U/L (14-35); African American GFR (CKD) 92.8 (60.0-200.0); Albumin 3.7 g/dL (3.8-4.9); Albumin/Globulin Ratio 1.64 (1.60-3.17); Alkaline Phosphatase 48 U/L (41-126); BUN/Creat Ratio 17.22 Ratio (12.00-20.00); Blood Urea Nitrogen 14.6 mg/dL (9.0-27.0); Calcium 8.5 mg/dL (8.7-10.3); Carbon Dioxide 22.7 mmol/L (20.0-27.5); Chloride 101 mmol/L (96-109); Globulin 2.2 g/dL (1.6-3.3); Glucose 97 mg/dL (70-110); Magnesium 1.8 mg/dL (1.5-2.4); Non-African American GFR(CKD) 80.1 (60.0-200.0); Potassium 4.1 mmol/L (3.5-5.5); Sodium 135 mmol/L (135-145); Total Protein 5.9 g/dL (6.2-8.2)
[2022-01-23 11:58] LABS: LDH 199 U/L (120-246)
--- NOTE | 2022-01-23 13:53 | P.PN ---
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 He presented to the emergency department for a chief complaint of worsening mental status. Patient is a resident at [facility] and was reportedly found by staff to have increased confusion lying in his bed with reports of green bile emesis noted on patient and his bed sheets. Patient is currently alert and oriented 1 with baseline mentation per patient's son at bedside being alert and oriented 2. Patient's son reports that his dad has had worsening mentation over the past 5 years after his diagnosis of dementia and was recently placed in [facility] assisted living facility 3 weeks ago, but states his father is typically is alert to person and place and for the most part functions independently and only requires minimal redirection and ambulates independently with a walker. He states his dad was at his baseline mentation yesterday evening when he spoke with him and denies any known recent illnesses/infections, fevers, or complaints from his father. He reports that his mother was recently diagnosed with COVID and that hi s father was tested at [facility] this morning and this was also reported as positive. Upon evaluation patient is alert to self only but appears to be answering yes and no questions appropriately. Patient states, "not anymore". When asked further patient reports he did have pain in right shoulder and his head but states "its gone now." He denies experiencing any dizziness, lightheadedness, changes in vision or hearing, chest pain or palpitations, shortness of breath, cough, or experiencing any numbness/tingling/weakness in his extremities. In the emergency department patient underwent full evaluation. CBC, CMP, and coags all unremarkable. Urinalysis negative for infection and urine drug screen negative. EKG showing sinus rhythm at 64 bpm with a right bundle branch block and no noted T-wave or ST abnormalities showing no signs of acute ischemia. Chest x-ray negative for acute cardiopulmonary process reporting no evidence of pleural effusion, consolidation, or pneumothorax. Covid PCR positive. Patient admitted under our services at this time. Physical exam: Patient seen and fully evaluated at bedside this morning. Patient remains alert and oriented to self only, patient has developed a noted cough. We will repeat chest x-ray to evaluate. Morning labs stable with the exception of hemoglobin 12.7 and elevated CRP at 4.30. Patient denies having any complaints or pain at this time. Vital signs reviewed and stable. General: Nontoxic, no distress and appears stated age. Derm: Skin warm and dry, normal coloration for ethnicity. Head: Atraumatic, normocephalic and symmetric. Eyes: EOMs intact, no lid lag, and anicteric sclera Mouth: no lip lesions, mucus membranes moist Cardiovascular: regular rate and rhythm with normal S1S2, no murmur, positive posterior tibial pulses bilaterally, and cap refill < 2 seconds. Lungs: Respirations even, regular, and unlabored on room air. Lungs CTA bilaterally, no rhonchi, no rales, no wheezing, and no accessory muscle usage. Abdominal: soft, nontender to palpation, no guarding, no appreciable organomegaly Ext: ROM intact. No gross muscle atrophy, no edema, no contractures Neuro: Speech clear, face symmetrical and CN II-XII grossly intact with no noted focal neuro deficits. GCS 14. Patient moving all extremities without any difficulties appears to have equal strength and symmetrical movement. Psych: Alert and oriented to person only. Confused to place, time, and situation. And is calm and pleasant and easily redirectable. Assessment and Plan of Care: Acute delirium, likely multifactorial resulting from acute infection with Covid on top of underlying dementia Alzheimer's Dementia Normal pressure hydrocephalus status post shunt History of CVA, no reported residual deficits -Acute metabolic encephalopathy of unclear etiology. Possibly infectious versus neurologic as patient is currently positive for Covid infection but also has history of dementia, CVA, and normal pressure hydrocephalus status post shunt. In addition patient also reported previously having headache and right shoulder pain. -CT head without contrast negative for acute process revealing right ventricular shunt catheter unchanged in position -Neuro checks every 4 hours -Fall precautions -Safe and supportive care with redirection as needed -Telemetry monitoring -Pending results of computed tomography scan, may consider neurology consult. COVID 19 infection -Oxygenation to be administered if needed and titrated as needed to maintain SPO2 equal to or greater than 90% -Telemetry monitoring. -Continue trending inflammatory markers -Encourage Incentive Spirometry 10-15x hourly while awake -Continue vitamin C, Vitamin D, and Zinc. -DVT prophylaxis with Lovenox. -Strict Droplet plus Contact precautions BPH -Continue medication regimen with Mirabegron and tamsulosin. The patient is admitted with an anticipated less than 2 midnight stay for evaluation of acute metabolic encephalopathy CODE STATUS: Full code DVT prophylaxis: Lovenox Discussed with: Patient and RN Anticipated discharge date: Clinical course to determine Anticipated discharge place: Return to [facility] A total of 31 minutes was spent on the care of this complex patient more than 50% of the time was spent in counseling and care coordination. I reviewed the documentation as provided by the [place] above, who is the original author of this note. I agree with the documented assessment and plan, with the following changes: none Objective - Vital Signs Vital signs: Vital Signs Temp 98.7 F 01/23/22 02:34 Pulse 61 01/23/22 02:34 Resp 17 01/23/22 02:34 BP 174/79 01/23/22 02:34 Pulse Ox 93 L 01/23/22 02:34 FiO2 Intake & Output 01/22/22 01/23/22 01/23/22 19:59 06:59 18:59 Intake Total Balance Weight Intake: Oral Other: Voiding Method # Voids - Labs CBC & Chem 7: 01/23/22 09:28 01/23/22 09:28 Labs: Abnormal Lab Results - Last 24 Hours (Table) 01/22/22 01/22/22 01/22/22 Range/Units 11:05 11:05 11:05 Lymphocytes # 0.4 L (1.0-4.8) k/uL APTT 21.8 L (22.0-30.0) sec Sodium 135 L (137-145) mmol/L Urine Protein (Negative) Urine Ketones (Negative) Coronavirus (PCR) (Not Detectd) 01/22/22 01/22/22 Range/Units 11:08 14:40 Lymphocytes # (1.0-4.8) k/uL APTT (22.0-30.0) sec Sodium (137-145) mmol/L Urine Protein Trace H (Negative) Urine Ketones Trace H (Negative) Coronavirus (PCR) Detected A (Not Detectd)
[2022-01-23] MEDS: HALOPERIDOL LACTATE 5 MG/ML 1 ML VIAL IM PRN (16:48)
[2022-01-23] MEDS: traZODone HCL 100 MG TAB PO SCH (20:03)
[2022-01-23] MEDS: MELATONIN 5 MG TABLET PO SCH (20:03)
[2022-01-23] MEDS: ATORVASTATIN 20 MG TAB PO SCH (20:03)
[2022-01-24 08:44] LABS: HCT 39.1 % (39.6-50.0); HGB 13.3 g/dL (13.0-17.0); MCV 91.1 fL (80.0-97.0); Mean Platelet Volume 9.8 fL (9.5-12.2); NRBC Per 100 WBC 0 /100 WBCS (0.0-0.0); Platelet Count 164 X 10*3/uL (140-440); RBC 4.29 X 10*6/uL (4.40-5.60); RDW 11.8 % (11.5-14.5)
[2022-01-24] MEDS: ENOXAPARIN 40 MG/0.4 ML SYRINGE SQ SCH (09:04)
[2022-01-24 09:09] LABS: African American GFR (CKD) 90.6 (60.0-200.0); Albumin 3.8 g/dL (3.8-4.9); Albumin/Globulin Ratio 1.73 (1.60-3.17); BUN/Creat Ratio 16.44 Ratio (12.00-20.00); Blood Urea Nitrogen 14.8 mg/dL (9.0-27.0); C Reactive Protein 3.6 mg/dL (0.00-0.80); Calcium 8.7 mg/dL (8.7-10.3); Globulin 2.2 g/dL (1.6-3.3); Magnesium 1.8 mg/dL (1.5-2.4); Non-African American GFR(CKD) 78.2 (60.0-200.0); Potassium 3.9 mmol/L (3.5-5.5); Total Bilirubin 0.7 mg/dL (0.30-1.20)
[2022-01-24] MEDS: MEMANTINE 5 MG TAB PO SCH ×2 (09:43→20:36)
[2022-01-24] MEDS: PANTOPRAZOLE 40 MG TABLET PO SCH (09:43)
[2022-01-24] MEDS: ASCORBIC ACID 500 MG TAB PO SCH (09:43)
[2022-01-24] MEDS: TAMSULOSIN 0.4 MG CAP.ER.24H PO SCH (09:43)
[2022-01-24] MEDS: ZINC SULFATE 220 MG CAP PO SCH (09:43)
[2022-01-24] MEDS: FINASTERIDE 5 MG TAB PO SCH (09:43)
[2022-01-24] MEDS: CHOLECALCIFEROL 25 MCG (1000 IU) TABLET PO SCH (09:43)
[2022-01-24] MEDS: polyethylene glycoL 3350 17 GM POWD.PACK PO SCH (09:44)
[2022-01-24] MEDS: DONEPEZIL 10 MG TAB PO SCH (09:44)
[2022-01-24] MEDS: SERTRALINE 100 MG TAB PO SCH (09:44)
[2022-01-24] MEDS: ASPIRIN 81 MG PO SCH (09:44)
[2022-01-24] MEDS: PATIENT'S OWN (Mirabegron [Myrbetriq] 50 MG Tablet) PO SCH (10:27)
[2022-01-24] MEDS: FLUTICASONE 50MCG/SPRAY NASAL 16GM EA NOSTRIL SCH ×2 (10:28→20:36)
--- NOTE | 2022-01-24 13:41 | P.PN ---
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 He presented to the emergency department for a chief complaint of worsening mental status. Patient is a resident at [facility] and was reportedly found by staff to have increased confusion lying in his bed with reports of green bile emesis noted on patient and his bed sheets. Patient is currently alert and oriented 1 with baseline mentation per patient's son at bedside being alert and oriented 2. Patient's son reports that his dad has had worsening mentation over the past 5 years after his diagnosis of dementia and was recently placed in [facility] assisted living facility 3 weeks ago, but states his father is typically is alert to person and place and for the most part functions independently and only requires minimal redirection and ambulates independently with a walker. He states his dad was at his baseline mentation yesterday evening when he spoke with him and denies any known recent illnesses/infections, fevers, or complaints from his father. He reports that his mother was recently diagnosed with COVID and that hi s father was tested at [facility] this morning and this was also reported as positive. Upon evaluation patient is alert to self only but appears to be answering yes and no questions appropriately. Patient states, "not anymore". When asked further patient reports he did have pain in right shoulder and his head but states "its gone now." He denies experiencing any dizziness, lightheadedness, changes in vision or hearing, chest pain or palpitations, shortness of breath, cough, or experiencing any numbness/tingling/weakness in his extremities. In the emergency department patient underwent full evaluation. CBC, CMP, and coags all unremarkable. Urinalysis negative for infection and urine drug screen negative. EKG showing sinus rhythm at 64 bpm with a right bundle branch block and no noted T-wave or ST abnormalities showing no signs of acute ischemia. Chest x-ray negative for acute cardiopulmonary process reporting no evidence of pleural effusion, consolidation, or pneumothorax. Covid PCR positive. Patient admitted under our services at this time. Physical exam: Patient seen and fully evaluated at bedside this morning. Patient remains alert and oriented to self only patient developed cough and congestion with clear sputum production. Upon auscultation no adventitious lung sounds noted in SpO2 remains stable. We will repeat chest x-ray to evaluate. Morning labs stable and CRP improving from 4.30 down to 3.60. Pro-calcitonin was negative at 0.08. Patient remains with acute delirium and unsafe for turned to assisted living facility at this time, patient transferred from observation status to inpatient admission at this time. Vital signs reviewed and stable. General: Nontoxic, no distress and appears stated age. Derm: Skin warm and dry, normal coloration for ethnicity. Head: Atraumatic, normocephalic and symmetric. Eyes: EOMs intact, no lid lag, and anicteric sclera Mouth: no lip lesions, mucus membranes moist Cardiovascular: regular rate and rhythm with normal S1S2, no murmur, positive posterior tibial pulses bilaterally, and cap refill < 2 seconds. Lungs: Respirations even, regular, and unlabored on room air. Lungs CTA bilaterally, no rhonchi, no rales, no wheezing, and no accessory muscle usage. Abdominal: soft, nontender to palpation, no guarding, no appreciable organomegaly Ext: ROM intact. No gross muscle atrophy, no edema, no contractures Neuro: Speech clear, face symmetrical and CN II-XII grossly intact with no noted focal neuro deficits. GCS 14. Patient moving all extremities without any difficulties appears to have equal strength and symmetrical movement. Psych: Alert and oriented to person only. Confused to place, time, and situation. And is calm and pleasant and easily redirectable. Assessment and Plan of Care: Acute delirium, likely multifactorial resulting from acute infection with Covid on top of underlying dementia Alzheimer's Dementia Normal pressure hydrocephalus status post shunt History of CVA, no reported residual deficits -Acute metabolic encephalopathy of unclear etiology. Possibly infectious versus neurologic as patient is currently positive for Covid infection but also has history of dementia, CVA, and normal pressure hydrocephalus status post shunt. In addition patient also reported previously having headache and right shoulder pain. -CT head without contrast negative for acute process revealing right ventricular shunt catheter unchanged in position -Neuro checks every 4 hours -Fall precautions -Safe and supportive care with redirection as needed -Telemetry monitoring -Pending results of computed tomography scan, may consider neurology consult. COVID 19 infection -Oxygenation to be administered if needed and titrated as needed to maintain SPO2 equal to or greater than 90% -Telemetry monitoring. -Continue trending inflammatory markers -Encourage Incentive Spirometry 10-15x hourly while awake -Continue vitamin C, Vitamin D, and Zinc. -DVT prophylaxis with Lovenox. -Strict Droplet plus Contact precautions BPH -Continue medication regimen with Mirabegron and tamsulosin. The patient is admitted with an anticipated less than 2 midnight stay for evaluation of acute metabolic encephalopathy CODE STATUS: Full code DVT prophylaxis: Lovenox Discussed with: Patient and RN Anticipated discharge date: Clinical course to determine Anticipated discharge place: Return to [facility] A total of 31 minutes was spent on the care of this complex patient more than 5 0% of the time was spent in counseling and care coordination. Objective - Vital Signs Vital signs: Vital Signs Temp 98.7 F 01/24/22 05:50 Pulse 73 01/24/22 08:00 Resp 16 01/24/22 08:00 BP 178/78 01/24/22 05:50 Pulse Ox 94 L 01/24/22 05:50 FiO2 Intake & Output 01/23/22 01/24/22 01/24/22 18:59 06:59 18:59 Intake Total 10 Output Total 236 Balance -236 10 Intake: Oral 10 Output: Post Void Residual 236 Other: Voiding Method Diaper Diaper Diaper Incontinent Incontinent Incontinent # Voids 300 1 - Labs CBC & Chem 7: 01/24/22 06:20 01/24/22 06:20 Labs: Abnormal Lab Results - Last 24 Hours (Table) 01/23/22 01/24/22 01/24/22 Range/Units 09:28 06:20 06:20 RBC 4.29 L (4.40-5.60) X 10*6/uL Hct 39.1 L (39.6-50.0) % Sodium 133 L (135-145) mmol/L Calcium 8.5 L (8.7-10.3) mg/dL AST 38 H 45 H (14-35) U/L C-Reactive Protein 4.30 H 3.60 H (0.00-0.80) mg/dL Total Protein 5.9 L 6.0 L (6.2-8.2) g/dL Albumin 3.7 L (3.8-4.9) g/dL
[2022-01-24] MEDS: HALOPERIDOL LACTATE 5 MG/ML 1 ML VIAL IM PRN (15:24)
--- NOTE | 2022-01-24 16:27 | P.CN ---
Psychiatric Consult - . Consult date: 01/24/22 Consult:: 01/24/22 16:14 Addy Fernandez is an 86 years old male patient in room #6 281 was seen for a psychiatric consultation regarding 'acute delirium in advanced dementia, medication recommendation please". Patient is not able to provide any i nformation in a coherent manner. All he could tell me was he is ready to go home. Otherwise his speech was fragmented irrelevant and irrational. Talked with the nurse who is taking care of him and she also mentioned that he is not able to provide any reasonable information except he wants to go home. His lab reports were reviewed which has several abnormalities including mild hyponatremia, mild increased AST and his PCR is positive. He is on several medications including Aricept 10 mg a day, Namenda 5 mg twice a day, Zoloft 100 mg a day and trazodone 100 mg at bedtime in addition to his o ther general medications. His tongue is dry and appears to be dehydrated. Suggestions: Discontinue trazodone since it is anticholinergic and can make his dementia worse. Stabilize his sodium level and dehydration by by IV fluids to include sodium chloride. His x-ray results of chest apparently is pending which needs to be addressed by the attending doctor. See if his abnormal lab reports need to be addressed. Leave the room lights on so that he does not get confused. If the family can bring his family pictures and leave in his room it will help him to orient better. Delirium in a demented person can be caused by even mild metabolic changes, infection, pain, constipation and also in change in environment. Talked to the nurse and we agreed to give him half to 1 mg of Ativan along with 2 mg of Haldol IM for aggressive behavior. The important thing is his metabolic status and possible other causes of delirium should be corrected for him to feel better.
[2022-01-24] MEDS: SODIUM CHLORIDE 0.9% 1,000 ML IV SCH (18:11)
[2022-01-24] MEDS: ATORVASTATIN 20 MG TAB PO SCH (20:36)
[2022-01-24] MEDS: MELATONIN 5 MG TABLET PO SCH (20:36)
[2022-01-24] MEDS: ACETAMINOPHEN TAB 325 MG TAB PO PRN (22:45)
[2022-01-25 03:22] VITALS: RESP 17
[2022-01-25] MEDS: SODIUM CHLORIDE 0.9% 1,000 ML IV SCH (05:31)
[2022-01-25] MEDS: ACETAMINOPHEN TAB 325 MG TAB PO PRN (05:57)
--- NOTE | 2022-01-25 08:25 | XR ---
EXAMINATION TYPE: XR chest 1V portable DATE OF EXAM: 01/25/2022 COMPARISON: 01/22/2022 INDICATION: Cold and cough, Sputum production TECHNIQUE: Single frontal view of the chest is obtained. FINDINGS: The heart size is normal. The pulmonary vasculature is normal. The lungs are clear. Catheters transversing the thorax. IMPRESSION: 1. No acute pulmonary process.
[2022-01-25] MEDS: FLUTICASONE 50MCG/SPRAY NASAL 16GM EA NOSTRIL SCH (08:58)
[2022-01-25] MEDS: ENOXAPARIN 40 MG/0.4 ML SYRINGE SQ SCH (09:00)
[2022-01-25] MEDS: MEMANTINE 5 MG TAB PO SCH (09:00)
[2022-01-25] MEDS: FINASTERIDE 5 MG TAB PO SCH (09:00)
[2022-01-25] MEDS: polyethylene glycoL 3350 17 GM POWD.PACK PO SCH (09:00)
[2022-01-25] MEDS: PANTOPRAZOLE 40 MG TABLET PO SCH (09:00)
[2022-01-25] MEDS: TAMSULOSIN 0.4 MG CAP.ER.24H PO SCH (09:01)
[2022-01-25] MEDS: SERTRALINE 100 MG TAB PO SCH (09:01)
[2022-01-25] MEDS: ZINC SULFATE 220 MG CAP PO SCH (09:01)
[2022-01-25] MEDS: DONEPEZIL 10 MG TAB PO SCH (09:01)
[2022-01-25] MEDS: ASCORBIC ACID 500 MG TAB PO SCH (09:01)
[2022-01-25] MEDS: CHOLECALCIFEROL 25 MCG (1000 IU) TABLET PO SCH (09:01)
[2022-01-25] MEDS: ASPIRIN 81 MG PO SCH (09:01)
[2022-01-25 09:37] VITALS: BP 180/98; PULSE 59; TEMP 97.6
--- NOTE | 2022-01-25 09:50 | P.DS ---
Providers Date of admission: 01/23/22 13:38 Expected date of discharge: 01/25/22 Attending physician: Kathy Meehan MD Consults: 01/23/22 16:06 Consult Physician Routine Consulting Provider: Addy Mustafa Consult Reason/Comments: acute delerium in advanced dementia, Medication recommendations please! Do you want consulting provider notified?: Yes Primary care physician: Manny Farias MD Hospital Course: Discharge Diagnosis: Acute delirium, likely multifactorial resulting from acute infection with Covid on top of underlying dementia. Acute delirium has resolved. Patient is now back at baseline mentation and level of functioning. Pt was also evaluated by psychiatry and trazadone has also been discontinued. Alzheimer's Dementia. Continue daily medication regimen with Aricept and Namenda. Normal pressure hydrocephalus status post shunt. CT head without contrast negat gris for acute process revealing right ventricular shunt catheter unchanged in position. History of CVA, no reported residual deficits COVID 19 infection, Chest x-ray negative on 01/22/22 and again negative for acute process 01/24/22. Pt has had no further cough, congestion and denies SOB. BPH. Continue medication regimen with Mirabegron and tamsulosin. 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 He presented to the emergency department for a chief complaint of worsening mental status. Patient is a resident at [facility] and was reportedly found by staff to have increased confusion lying in his bed with reports of green bile emesis noted on patient and his bed sheets. Patient is currently alert and oriented 1 with baseline mentation per patient's son at bedside being alert and oriented 2. Patient's son reports that his dad has had worsening mentation over the past 5 years after his diagnosis of dementia and was recently placed in [facility] assisted living facility 3 weeks ago, but states his father is typically is alert to person and place and for the most part functions independently and only requires minimal redirection and ambulates independently with a walker. He states his dad was at his baseline mentation yesterday evening when he spoke with him and denies any known recent illnesses/infections, fevers, or complaints from his father. He reports that his mother was recently diagnosed with COVID and that his father was tested at [facility] this morning and this was also reported as positive. Upon evaluation patient is alert to self only but appears to be answering yes and no questions appropriately. Patient states, "not anymore". When asked further patient reports he did have pain in right shoulder and his head but states "its gone now." He denies experiencing any dizziness, lightheadedness, changes in vision or hearing, chest pain or palpitations, shortness of breath, cough, or experiencing any numbness/tingling/weakness in his extremities. In the emergency department patient underwent full evaluation. CBC, CMP, and coags all unremarkable. Urinalysis negative for infection and urine drug screen negative. EKG showing sinus rhythm at 64 bpm with a right bundle branch block and no noted T-wave or ST abnormalities showing no signs of acute ischemia. Chest x-ray negative for acute cardiopulmonary process reportin g no evidence of pleural effusion, consolidation, or pneumothorax. Covid PCR positive. Patient admitted under our services at this time. The patient was monitored over a four day hospitalization secondary to this acute delerium. Trazadone was also discontinued after evaluation by psychiatry. Pt is now completely back to baseline mentation being alert to person, place, and situation. Pt went from not understanding how to feed himself and is now ambulating and feeding himself and completely alert to person, place and situation with only confusion being to date/time and this per family is baseline mentation. Pt is medically stable for discharge back to [facility] at this time. Physical exam: Vital signs reviewed and stable. General: Nontoxic, no distress and appears stated age. Derm: Skin warm and dry, normal coloration for ethnicity. Head: Atraumatic, normocephalic and symmetric. Eyes: EOMs intact, no lid lag, and anicteric sclera Mouth: no lip lesions, mucus membranes moist Cardiovascular: regular rate and rhythm with normal S1S2, no murmur, positive posterior tibial pulses bilaterally, and cap refill < 2 seconds. Lungs: Respirations even, regular, and unlabored on room air. Lungs CTA bilaterally, no rhonchi, no rales, no wheezing, and no accessory muscle usage. Abdominal: soft, nontender to palpation, no guarding, no appreciable organomegaly Ext: ROM intact. No gross muscle atrophy, no edema, no contractures Neuro: Speech clear, face symmetrical and CN II-XII grossly intact with no noted focal neuro deficits. GCS 14. Patient moving all extremities without any difficulties appears to have equal strength and symmetrical movement. Psych: Alert and oriented to person, place and situation. Patient only confused to time which is baseline mentation. And is calm and pleasant and easily redirectable. A total of 33 minutes of time were spent preparing this complex discharge summary. Pt was discharged on 01/25/22 at 9:53 AM. Patient Condition at Discharge: Stable Plan - Discharge Summary Discharge Rx Participant: No New Discharge Prescriptions: New Zinc Sulfate [Orazinc] 220 mg PO DAILY cap Continue Mirabegron [Myrbetriq] 50 mg PO DAILY@0800 Meclizine [Antivert] 12.5 mg PO TID PRN PRN Reason: Vertigo Memantine [Namenda] 5 mg PO BID@0800,1999 Docusate Sodium [Dok] 100 mg PO BID PRN PRN Reason: Constipation Cholecalciferol [Vitamin D3 (25 Mcg = 1000 Iu)] 50 mcg PO DAILY@0800 Atorvastatin [Lipitor] 20 mg PO HS@1999 Ascorbic Acid [Vitamin C] 500 mg PO DAILY@0800 Tamsulosin HCl [Flomax] 0.4 mg PO DAILY@0800 Omeprazole 20 mg PO DAILY@0800 Sertraline [Zoloft] 100 mg PO DAILY@0800 Galantamine HBr [Galantamine ER] 24 mg PO DAILY@0800 Fluticasone Nasal Soldier [Flonase Nasal Soldier] 1 spray EA NOSTRIL BID@799,1999 Finasteride [Proscar] 5 mg PO DAILY@0800 Melatonin 5 mg PO HS@1999 polyethylene glycoL 3350 [Clearlax] 1 packet PO DAILY@0800 Aspirin 81 mg PO DAILY@0800 Acetaminophen [Tylenol] 325 - 650 mg PO Q6H PRN PRN Reason: Fever And/ Or Pain Discontinued traZODone HCL [Desyrel] 100 mg PO HS@1999 Discharge Medication List Finasteride [Proscar] 5 mg PO DAILY@0800 06/22/21 [History] Fluticasone Nasal Soldier [Flonase Nasal Soldier] 1 spray EA NOSTRIL BID@08,199906/22/21 [History] Galantamine HBr [Galantamine ER] 24 mg PO DAILY@79906/22/21 [History] Meclizine [Antivert] 12.5 mg PO TID PRN 06/22/21 [History] Melatonin 5 mg PO HS@199906/22/21 [History] Mirabegron [Myrbetriq] 50 mg PO DAILY@0806/22/21 [History] Omeprazole 20 mg PO DAILY@79906/22/21 [History] Sertraline [Zoloft] 100 mg PO DAILY@79906/22/21 [History] Tamsulosin HCl [Flomax] 0.4 mg PO DAILY@79906/22/21 [History] Acetaminophen [Tylenol] 325 - 650 mg PO Q6H PRN 01/22/22 [History] Ascorbic Acid [Vitamin C] 500 mg PO DAILY@79901/22/22 [History] Aspirin 81 mg PO DAILY@0801/22/22 [History] Atorvastatin [Lipitor] 20 mg PO HS@199901/22/22 [History] Cholecalciferol [Vitamin D3 (25 Mcg = 1000 Iu)] 50 mcg PO DAILY@0801/22/22 [History] Docusate Sodium [Dok] 100 mg PO BID PRN 01/22/22 [History] Memantine [Namenda] 5 mg PO BID@799,199901/22/22 [History] polyethylene glycoL 3350 [Clearlax] 1 packet PO DAILY@0801/22/22 [History] Zinc Sulfate [Orazinc] 220 mg PO DAILY cap 01/25/22 [Rx] Follow up Appointment(s)/Referral(s): Manny Farias MD [Primary Care Provider] - 1-2 days Activity/Diet/Wound Care/Special Instructions: Activity: As tolerated. Take breaks as needed. Patient requires assistance and redirection as needed. Diet: Heart healthy and carb consistent diet. Avoid salts, or foods with hidden salts such as canned or boxed foods and frozen dinners. Extra salt makes your heart work harder and traps the fluid in your body for longer. Special Instructions: Take all of your medications as directed and remember to keep all of your doctor's appointments and follow-up as needed. Thank you for allowing us to participate in your care, it was truly a pleasure having you for our patient!!! Discharge Disposition: TRANSFER TO SNF/ECF
[2022-01-25] MEDS: PATIENT'S OWN (Mirabegron [Myrbetriq] 50 MG Tablet) PO SCH (10:51)
== END 2022-01-25 15:30 | DRG 177 ==
LOC: EC 09:49 → 6NMEDSUR 14:31 → OBSVTOIN 01-23 13:38 → 6NMEDSUR 01-24 05:16
PROVIDERS: ADMIT Internal Medicine; ATTEND Internal Medicine
DX: U07.1 COVID-19 (principal); G93.41 Metabolic encephalopathy; F02.83 Dementia in other diseases classified elsewhere, unspecified severity, with mood disturbance; G91.2 (Idiopathic) normal pressure hydrocephalus; F05 Delirium due to known physiological condition; E87.1 Hypo-osmolality and hyponatremia; E86.0 Dehydration; I45.10 Unspecified right bundle-branch block; N40.0 Benign prostatic hyperplasia without lower urinary tract symptoms; G30.9 Alzheimer's disease, unspecified; F32.A Depression, unspecified; Z79.82 Long term (current) use of aspirin; Z79.899 Other long term (current) drug therapy; Z85.6 Personal history of leukemia; Z86.73 Personal history of transient ischemic attack (TIA), and cerebral infarction without residual deficits; Z87.891 Personal history of nicotine dependence; Z96.89 Presence of other specified functional implants
CPT/HCPCS: 36415; 70450; 71045; 71046; 80053; 80306; 81003; 83615; 83735; 84145; 84443; 84484; 85025; 85027; 85610; 85730; 86140; 87635; 96360; 99285

== ENCOUNTER 2022-04-23 09:41 | Emergency (ER) | payer MEDICARE ==
--- NOTE | 2022-04-23 10:30 | ED ---
Fall HPI - General Chief Complaint: Fall Stated Complaint: Fall Time Seen by Provider: 04/23/22 09:50 Source: patient, EMS, RN notes reviewed Mode of arrival: EMS Limitations: no limitations - History of Present Illness Initial Comments: 86-year-old male presents emergency Department from [facility] with chief complaint of trip and fall. Patient states that he had tripped and fell striking his head. He is on aspirin no other blood thinners. Patient denies any extremity injury patient was placed in a c-collar. Patient denies any upper extremity. No lower extremity. Patient states he has some mild back pain was improving of chest pain or shortness breath no loss conscious. Patient offers no complaints. - Related Data Home Medications Medication Instructions Recorded Confirmed Finasteride [Proscar] 5 mg PO DAILY@79906/22/21 01/22/22 Fluticasone Nasal [place] [Flonase 1 spray EA NOSTRIL BID@08,199906/22/21 01/22/22 Nasal [place]] Galantamine HBr [Galantamine ER] 24 mg PO DAILY@79906/22/21 01/22/22 Meclizine [Antivert] 12.5 mg PO TID PRN 06/22/21 01/22/22 Melatonin 5 mg PO HS@199906/22/21 01/22/22 Mirabegron [Myrbetriq] 50 mg PO DAILY@79906/22/21 01/22/22 Omeprazole 20 mg PO DAILY@79906/22/21 01/22/22 Sertraline [Zoloft] 100 mg PO DAILY@79906/22/21 01/22/22 Tamsulosin HCl [Flomax] 0.4 mg PO DAILY@79906/22/21 01/22/22 Acetaminophen [Tylenol] 325 - 650 mg PO Q6H PRN 01/22/22 01/22/22 Ascorbic Acid [Vitamin C] 500 mg PO DAILY@79901/22/22 01/22/22 Aspirin 81 mg PO DAILY@79901/22/22 01/22/22 Atorvastatin [Lipitor] 20 mg PO HS@199901/22/22 01/22/22 Cholecalciferol [Vitamin D3 (25 50 mcg PO DAILY@79901/22/22 01/22/22 Mcg = 1000 Iu)] Docusate Sodium [Dok] 100 mg PO BID PRN 01/22/22 01/22/22 Memantine [Namenda] 5 mg PO BID@0800,199901/22/22 01/22/22 polyethylene glycoL 3350 [Clearlax] 1 packet PO DAILY@0800 01/22/22 01/22/22 Previous Rx's Medication Instructions Recorded Zinc Sulfate [Orazinc] 220 mg PO DAILY cap 01/25/22 Allergies Allergy/AdvReac Type Severity Reaction Status Date / Time lactose Allergy Unknown Verified 04/23/22 09:49 Review of Systems ROS Statement: Those systems with pertinent positive or pertinent negative responses have been documented in the HPI. ROS Other: All systems not noted in ROS Statement are negative. Past Medical History Past Medical History: CVA/TIA, Dementia, Memory Impairment, Osteoarthritis (OA), Prostate Disorder Additional Past Medical History / Comment(s): Dementia, DDD, normal pressure hydrocephalus with shunt placement, per pts son they were told he had a previous CVA History of Any Multi-Drug Resistant Organisms: None Reported Past Surgical History: Orthopedic Surgery Additional Past Surgical History / Comment(s): shunt placement Past Anesthesia/Blood Transfusion Reactions: No Reported Reaction Past Psychological History: Depression Smoking Status: Former smoker Past Alcohol Use History: None Reported Past Drug Use History: None Reported General Exam Limitations: no limitations General appearance: alert, in no apparent distress Head exam: Present: atraumatic, normocephalic, normal inspection Eye exam: Present: normal appearance, PERRL, EOMI. Absent: scleral icterus, conjunctival injection, periorbital swelling ENT exam: Present: normal exam, mucous membranes moist Neck exam: Present: normal inspection. Absent: tenderness, meningismus, full ROM (Patient c-collar), lymphadenopathy Respiratory exam: Present: normal lung sounds bilaterally. Absent: respiratory distress, wheezes, rales, rhonchi, stridor Cardiovascular Exam: Present: regular rate, normal rhythm, normal heart sounds. Absent: systolic murmur, diastolic murmur, rubs, gallop, clicks Extremities exam: Present: normal inspection, full ROM, normal capillary refill. Absent: tenderness, pedal edema, joint swelling, calf tenderness Neurological exam: Present: alert, oriented X3, CN II-XII intact, reflexes normal. Absent: motor sensory deficit Skin exam: Present: warm, dry, intact, normal color. Absent: rash Course Vital Signs 04/23/22 04/23/22 09:43 12:13 Temperature 97.9 F 98 F Pulse Rate 83 95 Respiratory 19 16 Rate Blood Pressure 115/78 131/78 O2 Sat by Pulse 98 96 Oximetry Medical Decision Making - Medical Decision Making Was pt. sent in by a medical professional or institution (, PA, H[employer]ENDER, urgent care, hospital, or longterm...) When possible be specific @ -No Did you speak to anyone other than the patient for history (EMS, parent, family, police, friend...)? What history was obtained from this source @ -EMS and provided past medical history the hospital care and treatment Did you review nursing and triage notes (agree or disagree)? Why? @ -I reviewed and agree with nursing and triage notes Were old charts reviewed (outside hosp., previous admission, EMS record, old EKG, old radiological studies, urgent care reports/EKG's, longterm records)? Report findings @ -No old charts were reviewed Differential Diagnosis (chest pain, altered mental status, abdominal pain women, abdominal pain men, vaginal bleeding, weakness, fever, dyspnea, syncope, headache, dizziness, GI bleed, back pain, seizure, CVA, palpatations, mental health)? @ -Intracranial hemorrhage, cervical fracture, scalp contusion, back fracture, back contusion, this list is not all inclusive. EKG interpreted by me (3pts min.). @ -None X-rays interpreted by me (1pt min.). @ -X-ray lumbar no acute fracture, x-ray pelvis no acute fracture CT interpreted by me (1pt min.). @ -CT brain C-spine no acute intracranial hemorrhage, skull fracture or cervical fracture U/S interpreted by me (1pt. min.). @ -None done What testing was considered but not performed or refused? (CT, X-rays, U/S, labs)? Why? @ -None What meds were considered but not given or refused? Why? @ -None Did you discuss the management of the patient with other professionals (pr ofessionals i.e. , PA, HONEY BLENDER, lab, RT, psych nurse, social science professor, translation director, teacher, production officer, outpatient case manager)? Give summary @ -No Was smoking cessation discussed for >3mins.? @ -No Was critical care preformed (if so, how long)? @ -No Were there social determinants of health that impacted care today? How? (Homelessness, low income, unemployed, alcoholism, drug addiction, transportation, low edu. Level, literacy, decrease access to med. care, assisted, rehab)? @ -No Was there de-escalation of care discussed even if they declined (Discuss DNR or withdrawal of care, Hospice)? DNR status @ -No What co-morbidities impacted this encounter? (DM, HTN, Smoking, COPD, CAD, Cancer, CVA, ARF, Chemo, Hep., AIDS, mental health diagnosis, sleep apnea, morbid obesity)? @ -None Was patient admitted / discharged? Hospital course, mention meds given and route, prescriptions, significant lab abnormalities, going to OR and other pertinent info. @ -Discharge patient had negative imaging. Patient will be discharged back home with close follow-up return parameters were discussed. Undiagnosed new problem with uncertain prognosis? @ -No Drug Therapy requiring intensive monitoring for toxicity (Heparin, Nitro, Insulin, Cardizem)? @ -No Were any procedures done? @ -No Diagnosis/symptom? @ -Head contusion Acute, or Chronic, or Acute on Chronic? @ -Acute Uncomplicated (without systemic symptoms) or Complicated (systemic symptoms)? @ -Uncomplicated Side effects of treatment? @ -No Exacerbation, Progression, or Severe Exacerbation? @ -No Poses a threat to life or bodily function? How? (Chest pain, [place], NH, pneumonia, PE, COPD, DKA, ARF, appy, cholecystitis, CVA, Diverticulitis, Homicidal, Suicidal, threat to staff... and all critical care pts) @ -No Diagnosis/symptom? @ -Fall Acute, or Chronic, or Acute on Chronic? @ -Acute Uncomplicated (without systemic symptoms) or Complicated (systemic symptoms)? @ -Uncomplicated Side effects of treatment? @ -none Exacerbation, Progression, or Severe Exacerbation] @ -no Poses a threat to life or bodily function? @ -no - Lab Data Lab Results 04/23/22 Range/Units 12:33 Urine Color Yellow Urine Appearance Clear (Clear) Urine pH 6.0 (5.0-8.0) Ur Specific [place] 1.019 (1.001-1.035) Urine Protein Trace H (Negative) Urine Glucose (UA) Negative (Negative) Urine Ketones Negative (Negative) Urine Blood Negative (Negative) Urine Nitrite Negative (Negative) Urine Bilirubin Negative (Negative) Urine Urobilinogen <2.0 (<2.0) mg/dL Ur Leukocyte Esterase Trace H (Negative) Urine RBC 2 (0-5) /hpf Urine WBC 5 (0-5) /hpf Hyaline Casts 4 H (0-2) /lpf Urine Mucus Occasional H (None) /hpf Disposition Clinical Impression: Fall, Back pain, Contusion of head Disposition: HOME SELF-CARE Condition: Stable Instructions (If sedation given, give patient instructions): Fall Prevention for Older Adults (ED) Additional Instructions: Please return to the Emergency Department if symptoms worsen or any other concerns. Is patient prescribed a controlled substance at d/c from ED?: No Referrals: Manny Farias MD [Primary Care Provider] - 1-2 days Time of Disposition: 13:27
--- NOTE | 2022-04-23 10:32 | CT ---
EXAMINATION TYPE: CT brain cspine wo con DATE OF EXAM: 04/23/2022 COMPARISON: Prior CT brain and cervical spine November 07, 2021. Prior CT brain January 22, 2022 HISTORY: Headache and neck pain after fall today CT DLP: 1476.8 mGycm. Automated Exposure Control for Dose Reduction was Utilized. TECHNIQUE: CT scan of the head and cervical spine are performed without contrast. FINDINGS: Persistent right posterior demond hole with MACH[employer]MER shunt catheter terminating in the anterior lef t lateral ventricle axial image 36. Persistent moderate ventricular and sulcal prominence. No acute i ntracranial hemorrhage or midline shift. Ventricular size unchanged from prior study. Some low attenu ation in the periventricular white matter is redemonstrated. The globes are intact and visualized sin uses are clear. Cervical spine is visualized in its entirety from C1 through upper thoracic levels and redemonstrate levoconvex scoliosis centered upper thoracic spine without evidence of acute fracture or dislocation. Prevertebral soft tissue appears within normal limits. The C1-C2 articulation remains within tamiko l limits on the coronal images. Sagittal images redemonstrate grade 1 retrolisthesis C3 on C4 and C4 on C5 and to lesser degree C5 on C6. Vertebral body heights are maintained. Moderate to severe multi level disc space narrowing at these levels is redemonstrated. Spinal canal is grossly preserved. Axia l images show multilevel uncovertebral facet degenerative changes contributing to multilevel bilatera l neural foraminal narrowing. Lung apices show emphysematous change without pneumothorax. 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 There is partial visualizatio n of right sided anterior MACHINE ZIP[employer]IMMER shunt catheter. IMPRESSION: 1. There is no acute fracture or dislocation evident in the cervical spine. 2. No acute intracranial hemorrhage or midline shift is seen. No significant change from most recent studies.
--- NOTE | 2022-04-23 11:29 | XR ---
EXAMINATION TYPE: XR lumbar spine 2 or 3V DATE OF EXAM: 04/23/2022 CLINICAL HISTORY: Fall injury with low back pain TECHNIQUE: Frontal and lateral images of the lumbar spine are obtained. COMPARISON: CT lumbar spine June 06, 2019 FINDINGS: There are 5 lumbar type vertebral bodies redemonstrated. The lumbar spine redemonstrates grade 1 anterolisthesis L4 on L5. No acute displaced fracture. Vertebral body heights are maintained. Moderate to severe disc space narrowing and vacuum disc phenomenon and endplate sclerosis at L2-L3 a nd L3-L4 levels. Severe disc space narrowing L5-S1 level redemonstrated. Moderate disc space narrowin g with vacuum disc phenomenon at L4-L5 level redemonstrated. There is partial visualization of overly ing [employer] shunt catheter terminating in the central lower abdomen incidentally noted. IMPRESSION: No acute fracture or dislocation is seen in the lumbar spine.
--- NOTE | 2022-04-23 11:31 | XR ---
EXAMINATION TYPE: XR pelvis AP view DATE OF EXAM: 04/23/2022 CLINICAL HISTORY: Falling injury with pain. TECHNIQUE: A single AP view of the pelvis is obtained. COMPARISON: None. FINDINGS: There is no acute fracture/dislocation evident in the pelvis. The vteb-wi-tenaowjo axial joint space loss in both hips. Sacroiliac joints show some mild to moderate narrowing bilaterally. T he pubic symphysis is intact. There are linear densities underlying superior pubic symphysis likely f rom prostate radiation treatment. There is partial visualization of [employer]ATAL SPECIALIST shunt catheter in the lower ab domen and pelvis. IMPRESSION: There is no acute fracture or dislocation in the pelvis.
[2022-04-23 12:13] VITALS: BP 131/78; PULSE 95; RESP 16; TEMP 98
[2022-04-23 12:56] LABS: Appearance,Urine Clear (Clear); Bilirubin,Urine Negative (Negative); Blood,Urine Negative (Negative); Color,Urine Yellow; Glucose,Urine (UA) Negative (Negative); Hyaline Casts,Urine 4 /lpf (0-2); Ketones,Urine Negative (Negative); Leukocyte Esterase,Urine Trace (Negative); Mucus,Urine Occasional /hpf; Nitrite,Urine Negative (Negative); Protein,Urine Trace (Negative); RBC,Urine 2 /hpf (0-5); Specific Gravity,Urine 1.019 (1.001-1.035); Urobilinogen,Urine <2.0 mg/dL (<2.0); WBC,Urine 5 /hpf (0-5)
== END 2022-04-23 14:04 | disposition home or self-care (01) ==
LOC: EC 09:41
DX: S00.93XA Contusion of unspecified part of head, initial encounter (principal); M54.9 Dorsalgia, unspecified; Z86.73 Personal history of transient ischemic attack (TIA), and cerebral infarction without residual deficits; M19.90 Unspecified osteoarthritis, unspecified site; F32.A Depression, unspecified; Z87.891 Personal history of nicotine dependence; Z91.011 Allergy to milk products; Z79.82 Long term (current) use of aspirin; Z79.899 Other long term (current) drug therapy; W01.119A Fall on same level from slipping, tripping and stumbling with subsequent striking against unspecified sharp object, initial encounter
CPT/HCPCS: 70450; 72100; 72125; 72170; 81001; 99285